=== PATIENT | male | born 1970 ===

== ENCOUNTER 2020-05-26 13:14 | Outpatient (REF) | payer BC, SELFPAY | END 2020-05-26 13:15 | disposition home or self-care (01) | LOC: HO.LAB 13:14 | PROVIDERS: Visit Provider Nurse Practitioner Family | DX: R05 Cough (principal); Z20.822 Contact with and (suspected) exposure to COVID-19 | CPT/HCPCS: 36415; U0003; U0005 ==

== ENCOUNTER 2020-05-26 13:20 | Outpatient (REF) | payer BC, SELFPAY ==
--- NOTE | ~2020-05-26 | XR_ITS ---
EXAMINATION: XR CHEST CLINICAL INFORMATION: Cough COMPARISON: Chest radiographs 04/17/2018, 06/25/2015 TECHNIQUE: 2 views of the chest were obtained. FINDINGS: The lungs are clear. There is no airspace consolidation or groundglass opacity or effusion. The heart is normal in size and the hilar and mediastinal contours and visualized bony structures are unremarkable. XR/XR chest 2V IMPRESSION: Unremarkable examination.
== END 2020-05-26 13:21 | disposition home or self-care (01) ==
LOC: HO.HMGCX 13:20
PROVIDERS: PCP Internal Medicine; Visit Provider Nurse Practitioner Family
DX: R05 Cough (principal)
CPT/HCPCS: 71046

== ENCOUNTER 2021-02-02 09:04 | Emergency (ER) | payer BC, SELFPAY ==
[2021-02-02 09:38] VITALS: BP 119/71; PULSE 80; RESP 18; TEMP 36.7; O2SAT 98; BMI 27.8
--- NOTE | 2021-02-02 10:12 | ED.BACK ---
HPI - Back Pain/Injury General Chief Complaint: Back Pain/Injury Stated Complaint: back pain Time Seen by Provider: 02/02/21 10:12 Source: patient Mode of arrival: ambulatory Limitations: no limitations History of Present Illness HPI Narrative: 50-year-old male with a history of chronic lower back pain on chronic opiates, multiple lower back surgeries back in 2012 who presents to the ER with worsening lower back pain for the last 2 months. He denies any new injury or trauma. 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 He has had flares of his back pain since. He has seen his PCP twice and treated with courses of oral steroids with minimal improvement in the pain. He continues to take his tramadol and Soma with minimal relief. He admits to trying to hold off on medications until the pain is very severe. He is having trouble sleeping because of the pain. He states the pain is mostly in his left lower back and radiates down behind his left knee. Then he has ongoing pain down the front of his lower leg to his foot. He has intermittent numbness and tingling that is chronic. He denies any urinary incontinence, fecal incontinence, fever, chills. No history of IVDA. MD elicited complaint: back pain Pertinent past history: prior back pain Onset (ago): month(s) (2) Timing: constant Severity: severe Pain scale (0-10): 8 Similar Symptoms Previously: Yes Quality: sharp, aching, tingling and spasming Location: left lower back Radiation: left upper leg and left leg below the knee Exacerbating factors: movement Relieving factors: immobilization and medication Context: unknown Associated symptoms: numbness and difficulty walking Related Data Previous Rx's Medication Instructions Recorded tramadol 50 mg tablet 50 mg PO Q6H PRN 30 Days #120 tab 12/29/20 tizanidine 4 mg tablet 4 mg PO BEDTIME 15 Days #15 tab 01/05/21 carisoprodol 350 mg tablet (Soma) 350 mg PO TID PRN #30 tab 01/26/21 lidocaine 5 % topical patch 1 patch TOPICAL DAILY #15 ea 02/02/21 naproxen 500 mg tablet 500 mg PO BID #20 tab 02/02/21 oxycodone-acetaminophen 5 mg-325 1 tab PO Q6H PRN #8 tab 02/02/21 mg tablet Allergies Allergy/AdvReac Type Severity Reaction Status Date / Time acetaminophen [From VICODIN] Allergy Unknown UPSET Verified 12/29/20 08:11 STOMACH hydrocodone [From VICODIN] Allergy Unknown UPSET Verified 12/29/20 08:11 STOMACH Review of Systems Review of Systems: Constitutional: No Fever, No Chills Cardiovascular: No Chest Pain, No SOB Gastrointestinal: No Nausea, No Vomiting,, No abdominal Pain Genitourinary: No Dysuria, No Urinary Frequency, No Hematuria, No incontinence Musculoskeletal: + joint pain, + Myalgias Skin: No Skin Lesions, No rash Neuro: No Weakness, + Numbness, No Dizziness, No Headache Psych: No Anxiety/Panic, No Depression Heme/Lymph: No Bruising, No Lymphadenopathy PMFSH Past Medical History Surgical History History of appendectomy History of lumbar fusion History of lumbar surgery Family History Family History Father CVD (cardiovascular disease) Stroke Recent heart attack Mother Myocardial infarction Hypertension Maternal Grandmother Myocardial infarction Hypertension Diabetes Family/Other FH: mental illness Social History Social History Patient Tobacco Use Status: Never used Tobacco e-Cigarette/Vaping Use: Never Used Second Hand Smoke Exposure: No Advance Directives: No service: No Current occupational status: employed Physical Exam Vital Signs: Vital Signs: Last Vital Signs Temp 98.0 F 02/02/21 09:38 Pulse 80 02/02/21 09:38 Resp 18 02/02/21 10:33 BP 119/71 02/02/21 09:38 Pulse Ox 98 02/02/21 09:38 Body Mass Index 27.8 Appearance: Alert. Oriented X3. No acute distress. HEENT: normal inspection CVS: Normal heart rate and rhythm. Pulses normal. Respiratory: No respiratory distress. Skin: Skin warm and dry. Normal skin color. Normal skin turgor. No rashes. Back: Normal inspection. Left low lumbar and SI joints are tender, palpable muscle spasm. No lumbar spinal tenderness. Limited rotation and spinal flexion due to pain. Extremities: Atraumatic, no swelling x4. Neuro: Oriented X 3. No motor deficit. No sensory deficit. Slow to get up, ambulates with a slow but steady gait. Normal DTRs. Course Course Course Narrative: 50-year-old male presenting with acute on chronic lower back pain. Pain is mostly in the left lower back, left SI joint and radiates down the left leg. He has no red flag symptoms of low back pain, no signs of cauda equina syndrome at this time. His exam and presentation are consistent with a flare of lumbar radiculopathy, however he is already on muscle relaxers and narcotic pain medicine at home. He reported no improvement with steroids prior. He is due to see his PCP 1 week from today. He had his prior back surgeries at [facility] in [place], recommended calling them for re-evaluation. He needs an outpatient MRI for further evaluation of his radiculopathy. He has been hoping to avoid surgery but understands that this may be the next option given his pain has been debilitating him for the last several months. Will plan to give a short course of Percocet and naproxen. He will stop taking his tramadol while we treat his acute pain with Percocet. He has built up a tolerance to tramadol on is not helping with his pain at this time. We discussed the importance of sticking with 1 narcotic for his pain any expressed understanding. Stable for discharge home with plan for close follow-up with his PCP and plan to follow up with [facility] for surgical evaluation. Critical Care Time Critical Care Time Critical Care Time: No Discharge Plan Discharge Clinical Impression: Lumbar radiculopathy Patient Disposition: Home, Self-Care Instructions: Lumbar Radiculopathy (ED), Lower Back Exercises (ED) Additional Instructions: Recommend following up with [facility] as soon as possible. Take prescribed Percocet as needed for severe pain, do not mix this with your previously prescribed tramadol. Recommend taking your Soma medication 3 times a day for the next few days to see if he can get on top of the muscle pain and spasm Take the prescribed naproxen 2 times a day, take with food Follow-up with your doctor as scheduled on February 09 No bending, lifting or twisting. Use ice several times per day for 20 minutes at a time for the next 48 hours and then change to heat. If your pain worsens, if you loss of function or incontinence call 911 or come back to the ER right away for evaluation. Prescriptions: New naproxen 500 mg tablet 500 mg PO BID Qty: 20 RF: 0 lidocaine 5 % adhesive patch,medicated 1 patch topical DAILY Qty: 15 RF: 0 oxycodone-acetaminophen 5-325 mg tablet 1 tab PO Q6H PRN (Reason: severe pain (scale score 7-10)) Qty: 8 RF: 0 No Action tizanidine 4 mg tablet 4 mg PO BEDTIME 15 Days Qty: 15 RF: 0 carisoprodol [Soma] 350 mg tablet 350 mg PO TID PRN (Reason: muscle pain) Qty: 30 RF: 0 tramadol 50 mg tablet 50 mg PO Q6H PRN (Reason: pain) 30 Days Qty: 120 RF: 0 Referrals: Jong Vega PA-C [Physician Weights And Measures Inspector] - 1 week (Lumbar radiculopathy, needs outpatient MRI) Stand Alone Forms: Work/School Release Interventions: ED Discharge Assessment Last Done: 02/02/21 10:30 Discharge Date/Time: 02/02/21 10:34
[2021-02-02] MEDS: Ketorolac Tromethamine 60 MG/2 ML VIAL IM (10:26)
[2021-02-02] MEDS: oxyCODONE HCl Immed Release 5 MG TABLET 10 MG PO (10:27)
[2021-02-02 10:33] VITALS: RESP 18
== END 2021-02-02 10:34 | disposition home or self-care (01) ==
PROVIDERS: Emergency Provider Emergency Medicine; PCP Internal Medicine
DX: M54.16 Radiculopathy, lumbar region (principal); Z79.891 Long term (current) use of opiate analgesic
CPT/HCPCS: 96372; 99283; 99284; J1885

== ENCOUNTER 2021-02-11 07:53 | Outpatient (REF) | payer BC, SELFPAY ==
[2021-02-11 08:40] LABS: Hematocrit 41.4 % (42.0-52.0); Mean Corpuscular HGB Conc 33.8 g/dl (31.0-36.0); Mean Corpuscular Hemoglobin 30.2 pg (27.0-33.0); Mean Corpuscular Volume 89.2 fL (80.0-98.0); Mean Platelet Volume 10.2 fL (9.4-12.4); Platelet Count 188 X10*3/uL (160-400); Red Blood Count 4.64 X10*6/uL (4.60-5.80); Red Cell Distribution Width 12.1 % (11.0-16.0); White Blood Count 6.1 X10*3/uL (4.8-10.8)
[2021-02-11 09:04] LABS: Alanine Aminotransferase 26 U/L (0-40); Albumin Level 4.5 g/dL (3.5-5.0); Alkaline Phosphatase 59 U/L (39-117); Anion Gap 10 (12-20); Aspartate Amino Transferase 21 U/L (5-37); Bilirubin Total 0.7 mg/dL (0.0-1.0); Blood Urea Nitrogen 16 mg/dL (9-16); Calcium 9.3 mg/dL (8.4-10.2); Carbon Dioxide 29 mmol/L (22-29); Chloride 103 mmol/L (96-108); Cholesterol 196 mg/dL; Estimated Glomerular Filt Rate > 60; Glucose Fasting 85 mg/dL (60-99); HDL Cholesterol 41 mg/dL; LDL Cholesterol Calculated 131 mg/dl; Potassium 4.6 mmol/L (3.3-5.1); Sodium 137 mmol/L (135-145); Total Protein 6.9 g/dL (6.5-8.0); Triglycerides 123 mg/dL
[2021-02-11 09:05] LABS: Estimated Average Glucose 91 mg/dL; Hemoglobin A1c % 4.8 %
[2021-02-11 09:26] LABS: TSH reflex Free T4 0.88 uIU/mL (0.32-4.0)
== END 2021-02-11 07:54 | disposition home or self-care (01) ==
LOC: HO.LAB 07:53
PROVIDERS: Visit Provider Physician Assistant
DX: Z13.1 Encounter for screening for diabetes mellitus (principal); Z13.220 Encounter for screening for lipoid disorders; M54.16 Radiculopathy, lumbar region
CPT/HCPCS: 36415; 80053; 80061; 83036; 84443; 85027

== ENCOUNTER 2021-03-03 17:55 | Outpatient (REF) | payer BC, SELFPAY ==
--- NOTE | ~2021-03-03 | MR_ITS ---
EXAMINATION: MR LUMBAR SPINE WITHOUT AND WITH CONTRAST CLINICAL INFORMATION: Radiculopathy, lumbar region. COMPARISON: There are no prior studies available for comparison. TECHNIQUE: MRI of the lumbar spine was obtained using routine sequences with and without contrast. Intravenous contrast: Gadavist 10 mL FINDINGS: VERTEBRAL BODIES AND PARASPINAL STRUCTURES: There is a mild levoscoliosis. 2 space cages are noted in the intervertebral disc at L5-S1. There appear to be sequelae of a left-sided hemilaminectomy at L5-S1. There is loss of signal from the intervertebral disc at L4-L5 with mild loss of intervertebral disc height. No fractures are demonstrated and marrow signal is homogenous. There is no abnormal osseous enhancement noted following intravenous contrast administration. The visualized retroperitoneal and pelvic structures are unremarkable. There are degenerative changes of the sacroiliac joints. CONUS MEDULLARIS AND CAUDA EQUINA: Normal, terminating at the level of L1-L2. The lower thoracic spinal cord has normal signal and there is no abnormal enhancement. The filum terminale and cauda equina nerve roots appear normal. SPINAL LEVELS: L1-L2: There is mild bilateral facet arthropathy. Disc contour is normal. There is no central stenosis or foraminal narrowing. L2-L3: There is mild to moderate bilateral facet arthropathy. Disc contour is normal. There is no central stenosis or foraminal narrowing. L3-L4: There is moderate bilateral facet arthropathy with ligamenta flava hypertrophy and small facet joint effusions. There is a mild diffuse disc bulge. There is no foraminal nerve root impingement and there is no central stenosis. L4-L5: There is moderate to severe bilateral facet arthropathy with ligamenta flava hypertrophy and small facet joint effusions. There is a posterior disc protrusion with an annular fissure which is most prominent centrally and toward the left. There is marked narrowing of the subarticular recesses, more severely on the left and there is impingement on the bilateral traversing L5 nerve roots. The neural foramina are patent bilaterally. There is severe central stenosis. L5-S1: There are sequelae of a left-sided hemilaminectomy. There is mild bilateral facet arthropathy. There are sequelae of a left-sided hemilaminectomy. There is a posterior osteophytic ridge which is most prominent on the left, and narrows the left subarticular recess. There is mild enhancement in this region, and there may be a degree of granulation. There is impingement on the traversing left S1 nerve root. There is no central stenosis. There is no significant foraminal narrowing. MR/MR lumbar spine wo/w con IMPRESSION: 1. There are sequelae of a left-sided hemilaminectomy at L5-S1. There is a posterior osteophytic ridge most prominent in the left which narrows the left subarticular recess with impingement on the traversing left S1 nerve root. There is some enhancement in the region of the osteophytic ridge on the left, which may be consistent with some degree of granulation. There is no central stenosis. 2. At L4-L5 there is facet arthropathy and there is a posterior disc protrusion, which is most prominent centrally and toward the left. There is marked narrowing of the subarticular recesses, more severely on the left, and there is impingement on the bilateral traversing L5 nerve roots. There is severe central stenosis. 3. Mild facet arthropathic changes are demonstrated at other levels as described above.
== END 2021-03-03 17:56 | disposition home or self-care (01) ==
LOC: HO.MRI 17:55
PROVIDERS: Visit Provider Physician Assistant
DX: M54.16 Radiculopathy, lumbar region (principal)
CPT/HCPCS: 72158; A9585

== ENCOUNTER 2021-05-25 07:54 | Emergency (ER) | payer BC, MEDICAID, SELFPAY ==
[2021-05-25 08:29] VITALS: BP 128/72; PULSE 69; RESP 18; TEMP 36.8; O2SAT 100; BMI 29.8
--- NOTE | 2021-05-25 08:39 | ED.BACK ---
HPI - Back Pain/Injury General Chief Complaint: Back Pain/Injury Stated Complaint: Back pain Time Seen by Provider: 05/25/21 08:35 Source: patient Mode of arrival: ambulatory Limitations: no limitations History of Present Illness HPI Narrative: 42-year-old male with a history of lumbar canal stenosis with lumbar radiculopathy down the left leg at baseline, multiple spine surgeries here with reports of low back pain with radiation down the left leg acute on chronic for the last 3 days unrelieved with home Percocet and Soma. Patient tells me he is scheduled to have a another surgery in 1 month at [facility] with Dr. Hernandez. Patient tells me over the last few days his pain has been worsening with no new injury or trauma. Patient has history of chronic low back pain with radiation down the left leg at baseline. Patient also reports some left lower extremity weakness secondary to pain. This is also at baseline. He denies any saddle anesthesia. No bowel or bladder incontinence. No fever. The patient is ambulatory Related Data Previous Rx's Medication Instructions Recorded lidocaine 5 % topical patch 1 patch TOPICAL DAILY #15 ea 02/02/21 carisoprodol 350 mg tablet (Soma) 350 mg PO TID PRN 5 Days #30 tab 05/05/21 tramadol 50 mg tablet 50 mg PO Q6H PRN 30 Days #120 tab 05/05/21 oxycodone-acetaminophen 5 mg-325 1 tab PO Q6H PRN 5 Days #20 tab 05/19/21 mg tablet lidocaine 5 % topical patch 1 patch TOPICAL DAILY #15 ea 05/25/21 (Lidoderm) naproxen 500 mg tablet 500 mg PO BID PRN #20 tab 05/25/21 Allergies Allergy/AdvReac Type Severity Reaction Status Date / Time acetaminophen [From VICODIN] Allergy Unknown UPSET Verified 05/25/21 08:29 STOMACH hydrocodone [From VICODIN] Allergy Unknown UPSET Verified 05/25/21 08:29 STOMACH Review of Systems Review of Systems: Yes all other systems are reviewed and are negative Constitutional: Constitutional: Reports no additional constitutional complaints, Denies body ache(s), Denies chills, Denies fever(s), Denies headache(s) and Denies weakness Eyes: Eyes: Reports no additional eye complaints and Denies change in vision ENT: Reports system reviewed and no additional complaints, except as documented, Denies dizziness, Denies headache(s), Denies nasal congestion, Denies nasal discharge and Denies neck pain Cardiovascular: Cardiovascular: Reports no additional cardiovascular complaints, Denies chest pain, Denies leg edema and Denies dyspnea Respiratory: Respiratory: Reports no additional respiratory complaints, Denies cough and Denies dyspnea Gastrointestinal: Gastrointestinal: Reports no additional gastrointestinal complaints, Denies abdominal pain, Denies diarrhea, Denies nausea and Denies vomiting Genitourinary: Genitourinary: Denies urinary incontinence Musculoskeletal: Musculoskeletal: Reports no additional musculoskeletal complaints, Reports back pain, Denies arthralgias, Denies joint swelling, Denies neck pain, Denies numbness and Reports tingling Integumentary/Breasts: Skin/Breast: Reports system reviewed and no additional complaints, except as docu and Denies rash Neurologic: Reports system reviewed and no additional complaints, except as documented, Denies Abnormal speech present, Denies dizziness, Denies headache(s), Denies numbness, Reports tingling and Denies weakness PMFSH Past Medical History Attestation statement: The following information was validated with the patient. Source: old records reviewed and nursing notes reviewed Surgical History History of appendectomy History of lumbar fusion History of lumbar surgery Family History Family History Father CVD (cardiovascular disease) Stroke Recent heart attack Mother Myocardial infarction Hypertension Maternal Grandmother Myocardial infarction Hypertension Diabetes Family/Other FH: mental illness Social History Social History Housing: Apartment Patient Tobacco Use Status: Never used Tobacco e-Cigarette/Vaping Use: Never Used Second Hand Smoke Exposure: No Advance Directives: No Advance Directives Information Provided: Yes service: No Current occupational status: unemployed and disabled Physical Exam Vital Signs: Vital Signs: Last Vital Signs Temp 98.3 F 05/25/21 08:29 Pulse 69 05/25/21 08:29 Resp 18 05/25/21 08:29 BP 128/72 05/25/21 08:29 Pulse Ox 100 05/25/21 08:29 BMI result Body Mass Index 29.8 Const: General: cooperative, healthy appearing, comfortable and no acute distress Orientation/consciousness: patient oriented x3 Limitations: no limitations HENMT: Head: Yes normal to inspection Ears: hearing grossly normal bilaterally General nose exam: Normal external nose present Face and sinus: Yes normal facial exam Mouth: Normal oral and palatal mucosa present Throat: Yes posterior oropharynx normal Eyes: General: appearance normal, both eyes and all related structures Pupils: Equal, round and reactive pupils present Neck: Neck: Yes normal visual inspection Chest: Chest palpation & inspection: normal inspection of the chest Resp: Effort & Inspection: normal respiratory effort Auscultation: clear to auscultation bilaterally Cardio: Rate: regular rate Rhythm: regular rhythm Peripheral pulses: Peripheral pulses 2+ throughout GI: Inspection: Yes normal to inspection Palpation (GI): Soft to palpation and nontender Auscultation: normal bowel sounds Back/Spine/Pelvis: Other: Lumbar midline tenderness with no step-offs or deformities. Patient unable to perform straight leg raise left side Thoracic/Lumbar Spine: thoracic and lumbar spine normal to inspection Skin: General skin exam: no rashes or lesions noted Neuro: Other: 5 in 5 strength upper extremities and right lower extremity Left lower extremity 4-5 General: patient oriented x3 and normal sensation to monofilament Cranial nerves: Yes CN's II-XII intact bilaterally, Yes Equal, round and reactive pupils present, Yes Bilaterally intact EOM present, Yes Nystagmus not present, Yes Normal facial strength present and Yes Midline tongue present Cognition (Neuro): normal cognition Speech: No Abnormal speech present Gait exam (Neuro): Normal gait present Sensory Exam: Normal double simultaneous stimulation for sensation Deep tendon reflexes (DTR's): Right patellar reflex intensity grade: 2+ and Left patellar reflex intensity grade: 2+ Extrem: General: Yes normal to inspection Course Course Course Narrative: 42-year-old male here with acute on chronic low back pain with radiation to left leg for the last few days unrelieved with home Percocet and Soma. No new injury or trauma. No new symptoms. Patient has sensation loss and weakness in the left lower extremity which he tells me is baseline. No saddle anesthesia or incontinence. Will provide analgesia and reassess 0930-patient is feeling well. His pain is improved. He is up and ambulatory. He will follow-up outpatient with his orthopedic surgeon. We discussed that he is taking Percocet already and Soma. Will add an NSAID and medicated patch. Reviewed worrisome signs and symptoms such as saddle anesthesia, incontinence and when to return to the emergency department. Comfortable discharge home. MDM - Back Pain/Injury MDM Narrative Medical decision making narrative: Less likely cauda equina with no incontinence or saddle anesthesia Differential Diagnosis Differential diagnosis: Likely lumbar radiculopathy Medical Records Attestation: I reviewed the patient's medical records. Lab Data Attestation: I reviewed the patient's lab results. Discharge Plan Discharge Clinical Impression: Lumbar radiculopathy Patient Disposition: Home, Self-Care Instructions: Lumbar Radiculopathy (ED) Additional Instructions: Continue your home medication Call your orthopedic and let them know what is going on Prescriptions: New lidocaine [Lidoderm] 5 % adhesive patch,medicated 1 patch topical DAILY Qty: 15 0RF Rx Instructions: leave on most painful area for up to 12 hrs naproxen 500 mg tablet 500 mg PO BID PRN (Reason: pain) Qty: 20 0RF No Action tramadol 50 mg tablet 50 mg PO Q6H PRN (Reason: pain) 30 Days Qty: 120 0RF carisoprodol [Soma] 350 mg tablet 350 mg PO TID PRN (Reason: muscle pain) 5 Days Qty: 30 0RF oxycodone-acetaminophen 5-325 mg tablet 1 tab PO Q6H PRN (Reason: severe pain (scale score 7-10)) 5 Days Qty: 20 0RF lidocaine 5 % adhesive patch,medicated 1 patch topical DAILY Qty: 15 0RF Rx Instructions: leave on most painful area for up to 12 hrs Referrals: Azael King MD [Physician] - 2 days Interventions: ED Discharge Assessment Last Done: 05/25/21 09:33
[2021-05-25] MEDS: oxyCODONE HCl Immed Release 5 MG TABLET 10 MG PO (08:46)
[2021-05-25] MEDS: Ketorolac Tromethamine 60 MG/2 ML VIAL IM (08:47)
[2021-05-25 09:34] VITALS: RESP 17
== END 2021-05-25 09:42 | disposition home or self-care (01) ==
PROVIDERS: Emergency Provider Emergency Medicine; PCP Physician Assistant
DX: M54.16 Radiculopathy, lumbar region (principal); R53.1 Weakness; G89.29 Other chronic pain; M54.50 Low back pain, unspecified
CPT/HCPCS: 96372; 99283; 99284; J1885

== ENCOUNTER 2021-09-21 17:00 | Outpatient (RCR) | payer MEDICARE, MEDICAID, SELFPAY ==
--- NOTE | 2021-09-07 15:10 | MHC.PT.EP ---
[facility] [place] Office [place] Office [place] Office [address] Billy Go [address] [phone] F: [phone] F: [phone] F: [phone] F: [phone] Physical Therapy Plan of Care Date of Evaluation: Date of Surgery: Diagnosis: lumbosacral intervertebral disc disorder Assessment: Patient is a 50 year old R handed male who presents with s/s consistent with low back pain secondary to surgery in June of 2021. This was his 3rd back surgery in the last decade and included hardware placement per pt report. 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 Patient past medical history includes 3 total lumbar surgeries. Current impairments include pain, posture, ROM, muscle length, strength, activity tolerance and functional mobility. Functional limitations include decreased ability to walk, sleep, lift, carry, push, pull, squat, and dress. Patient is motivated with good rehab potential. Skilled PT will address impairments and functional limitations in order to achieve goals. Frequency and Duration: The patient will be seen 2x/week for 5 weeks Short Term Goals: I with HEP - 2 weeks pain free full rotation - 3 weeks demo proper squat mechanics, floor to waist lift - 3 weeks Skilled Nursing Goals: 90/90 lacking 20 or less - 5 weeks Oswestry 6% or less - 5 weeks Safe return to all work duties - 5 weeks Treatment Plan: Modalities to reduce pain, spasms and effusion. Manual therapy to restore motion and function. Therapeutic exercise to improve strength and flexibility. Neuromuscular re-education for posture and balance. Therapeutic activities to return to functional activities of daily living. Electronically signed by: Juan Ramon Rubin, PT Please sign and return to therapist. Thank you for your referral.
--- NOTE | 2021-12-30 11:06 | MHC.PT.DC ---
[facility] [place] Office [place] Office [place] Office [address] Billy Go [address] [phone] F: [phone] F: [phone] F: [phone] F: [phone] Physical Therapy Discharge Report Diagnosis: lumbosacral intervertebral disc disorder Date of Surgery: Date of Evaluation: 09/07/21 Date of Discharge: 10/11/21 Treatments to Date: 3 Cancellations to Date: No Shows to Date: Discharge Status: Independent with HEP Patient Elected to Stop Discharge Summary: 09/21: Pt performs exercises well w/o c/o pain just appropriate fatigue. No adverse effects. 09/14: Pt progressed from exercise to exercise well, no complaints or expressions of pain; Pt demos familiarity with HEP exercises and performs well. Ed on DOMS with new exercises received well; Challenged with bug though states I like this one, I'm going to get a ball . Patient is a 50 year old R handed male who presents with s/s consistent with low back pain secondary to surgery in June of 2021. This was his 3rd back surgery in the last decade and included hardware placement per pt report. 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 Patient past medical history includes 3 total lumbar surgeries. Current impairments include pain, posture, ROM, muscle length, strength, activity tolerance and functional mobility. Functional limitations include decreased ability to walk, sleep, lift, carry, push, pull, squat, and dress. Patient is motivated with good rehab potential. Skilled PT will address impairments and functional limitations in order to achieve goals. Electronically signed by: Juan Ramon Rubin, PT Please sign and return to therapist. Thank you for your referral.
== END 2021-12-30 11:06 | disposition home or self-care (01) ==
LOC: HO.PTCHIC 17:00
PROVIDERS: PCP Physician Assistant; Visit Provider Physician Assistant
DX: M51.9 Unspecified thoracic, thoracolumbar and lumbosacral intervertebral disc disorder (principal)
CPT/HCPCS: 97110; 97112; 97161

== ENCOUNTER → 2022-02-22 13:56 | Outpatient (BNVA) | payer MEDICARE, MEDICAID, SELFPAY | PROVIDERS: PCP Physician Assistant; Visit Provider Nurse Practitioner Family | DX: Z12.11 Encounter for screening for malignant neoplasm of colon (principal) | CPT/HCPCS: 99202 ==

== ENCOUNTER 2022-04-16 07:33 | Outpatient (REF) | payer MEDICARE, MEDICAID, SELFPAY ==
[2022-04-16 08:45] LABS: Estimated Average Glucose 88 mg/dL; Hemoglobin A1c % 4.7 %
[2022-04-16 09:14] LABS: Alanine Aminotransferase 34 U/L (0-40); Albumin Level 4.6 g/dL (3.5-5.0); Alkaline Phosphatase 76 U/L (39-117); Anion Gap 13 (12-20); Aspartate Amino Transferase 51 U/L (5-37); Bilirubin Total 1.2 mg/dL (0.0-1.0); Blood Urea Nitrogen 14 mg/dL (9-16); Calcium 9.4 mg/dL (8.4-10.2); Carbon Dioxide 26 mmol/L (22-29); Chloride 105 mmol/L (96-108); Cholesterol 182 mg/dL; Estimated Glomerular Filt Rate > 60; Glucose Fasting 83 mg/dL (60-99); HDL Cholesterol 48 mg/dL; LDL Cholesterol Calculated 123 mg/dl; Potassium 4.5 mmol/L (3.3-5.1); Sodium 139 mmol/L (135-145); Total Protein 7.3 g/dL (6.5-8.0); Triglycerides 59 mg/dL
[2022-04-16 09:34] LABS: Prostate Specific Antigen Scr 0.35 ng/mL (<0.05-4.0); TSH reflex Free T4 1.54 uIU/mL (0.32-4.0)
== END 2022-04-16 07:34 | disposition home or self-care (01) ==
LOC: HO.LAB 07:33
PROVIDERS: Visit Provider Physician Assistant
DX: Z13.220 Encounter for screening for lipoid disorders (principal); Z12.5 Encounter for screening for malignant neoplasm of prostate; Z13.29 Encounter for screening for other suspected endocrine disorder
CPT/HCPCS: 36415; 80053; 80061; 83036; 84153; 84443

== ENCOUNTER 2022-05-21 09:35 | Outpatient (REF) | payer MEDICARE, MEDICAID, SELFPAY ==
[2022-05-21 11:44] LABS: Alanine Aminotransferase 16 U/L (0-40); Albumin Level 4.4 g/dL (3.5-5.0); Alkaline Phosphatase 76 U/L (39-117); Aspartate Amino Transferase 18 U/L (5-37); Bilirubin Direct 0.2 mg/dL (0.0-0.5); Bilirubin Total 0.9 mg/dL (0.0-1.0); Total Protein 6.9 g/dL (6.5-8.0)
== END 2022-05-21 09:36 | disposition home or self-care (01) ==
LOC: HO.LAB 09:35
PROVIDERS: PCP Physician Assistant; Visit Provider Nurse Practitioner Family
DX: R79.89 Other specified abnormal findings of blood chemistry (principal)
CPT/HCPCS: 36415; 80076

== ENCOUNTER 2022-08-16 10:46 | Day surgery (SDC) | payer MEDICARE, MEDICAID, SELFPAY ==
[2022-08-11 15:12] VITALS: BMI 28.3
--- NOTE | 2022-08-15 12:10 | HO.ANESPROP2 ---
Documented by User: Sarah Ayoub NP 08/18/22 14:30 HPI - Anesthesia Eval Consult details Narrative: 51yo M for Colonoscopy PMFSH Active Problems Active Problems: All Active Problems (Updated 08/11/22 @ 15:10 by Lucille Patten, DANIELLE) Cough (Acute) Sore throat (Acute) Lumbar radiculopathy (Acute) Screening for diabetes mellitus (DM) (Acute) Screening for hypercholesterolemia (Acute) Screening for hypothyroidism (Acute) Lumbar canal stenosis (Acute) Tinea pedis (Acute) Annual physical exam (Acute) Colon cancer screening (Acute) Elevated LFTs (Acute) Past Medical History Medical History Lumbar stenosis Family History Family History Father CVD (cardiovascular disease) Stroke Recent heart attack Mother Myocardial infarction Hypertension Maternal Grandmother Myocardial infarction Hypertension Diabetes Family/Other FH: mental illness Surgical History Surgical History History of appendectomy History of lumbar fusion History of lumbar surgery Social History Social History Housing: Apartment Alcohol intake: current Alcohol intake frequency: does not drink Patient Tobacco Use Status: Never used Tobacco e-Cigarette/Vaping Use: Never Used Second Hand Smoke Exposure: No service: No Current occupational status: employed 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 [employer] Cognitive needs: No Hearing needs: No Vision needs: No Meds Allergies Allergy/AdvReac Type Severity Reaction Status Date / Time hydrocodone [From VICODIN] AdvReac Intermediate UPSET Verified 08/16/22 11:49 STOMACH Home Medications Medication Instructions Recorded Confirmed Last Taken Type Excedrin Migraine 1 tab PO NEEDED PRN Headache 08/16/22 08/16/22 08/16/22 History tramadol 50 mg tablet 50 mg PO NEEDED PRN Pain 08/16/22 08/16/22 Unknown History Exam Exam Date and Time: August 15, 2022 1210 Height,Weight and Vital Signs: Height 6 ft Weight 94.801 kg Assessment and Plan Assessment Anesthesia Assessment: Chart Reviewed Documented by User: Jsoé Pierre MD 08/18/22 15:16 PMF Past Medical History Medical History Lumbar stenosis Family History Family History Father CVD (cardiovascular disease) Stroke Recent heart attack Mother Myocardial infarction Hypertension Maternal Grandmother Myocardial infarction Hypertension Diabetes Family/Other FH: mental illness Family history of problems with anesthesia: No Surgical History Surgical History History of appendectomy History of lumbar fusion History of lumbar surgery History of Problems with Anesthesia: No Social History Social History Housing: Apartment Alcohol intake: current Alcohol intake frequency: does not drink Patient Tobacco Use Status: Never used Tobacco e-Cigarette/Vaping Use: Never Used Second Hand Smoke Exposure: No service: No Current occupational status: employed 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 [employer] Cognitive needs: No Hearing needs: No Vision needs: No Meds Allergies Allergy/AdvReac Type Severity Reaction Status Date / Time hydrocodone [From VICODIN] AdvReac Intermediate UPSET Verified 08/16/22 11:49 STOMACH Home Medications Medication Instructions Recorded Confirmed Last Taken Type Excedrin Migraine 1 tab PO NEEDED PRN Headache 08/16/22 08/16/22 08/16/22 History tramadol 50 mg tablet 50 mg PO NEEDED PRN Pain 08/16/22 08/16/22 Unknown History Exam Airway Mallampati Class: II TM Dist: >3cm Neck ROM: Full Loose/Missing/Broken Teeth: Yes Assessment and Plan Assessment Anesthesia Assessment: Anesthesia Plan Discussed and Chart Reviewed Final Anesthetic Review Family History of Problems with Anesthesia: No History of Problems with Anesthesia: No NPO: Yes ASA Class: II Final Preanesthetic Review: No Changes in Pt Med Stat, Meds/Allgs Chart Reviewed, Consent Obtained/Reviewed and Anes Risks/Benef Reviewed Patient Risk: Low Procedure Risk: Low Anesthetic Plan Anesthetic Plan: MAC: Disposition: Standard PACU
[2022-08-16 11:55] VITALS: BMI 27.8
[2022-08-16 11:58] VITALS: BP 131/71; PULSE 54; RESP 16; TEMP 36.3; O2SAT 100
[2022-08-16] MEDS: Lactated Ringers 1,000 ML 100 ML IVCONT (13:04)
--- NOTE | 2022-08-16 13:05 | P.OP_ITS ---
Operative Note Operative Note Date of Service: 08/16/22 Narrative: Operative Information Procedure Description: Colonoscopy Indication: screening Anesthesia: MAC COLONOSCOPY Instrument: Olympus variable stiffness pediatric scope 190L Colonoscopy Monitoring: Vital signs and clinical assessment, continuous EKG monitoring, Pulse oximetry, Carbon Dioxide monitoring and blood pressure monitoring were done throughout the procedure. Colon withdrawal time was 10 minutes. Procedure: The patient was placed in the left lateral decubitis position and pre-procedure medications were administered. After a digital rectal examination of the ano-rectum, the video colonoscope was inserted into the rectum and advanced through the colon to the cecum/TI. The colonoscope was slowly withdrawn in a retrograde panoramic fashion and the colon mucosa was carefully examined including a retroflexed view of the rectum. Findings and interventions are described below. Procedure Difficulty: easy Findings: Terminal Ileum-normal Cecum:normal Ascending Colon: normal Transverse Colon -normal Descending Colon:normal Sigmoid Colon: 10 mm sessile polyp removed with cold snare Rectum: Retroflexion with small internal hemorrhoids, grade I Anorectum - normal Colon preparation: [place] Bowel Preparation Scale Right colon; 3 Transverse colon: 3 Left colon; 3 (0 = Unprepared colon segment with mucosa not seen due to solid stool that cannot be cleared. 1 = Portion of mucosa of the colon segment seen, but other areas of the colon segment not well seen due to staining, residual stool and/or opaque liquid. 2 = Minor amount of residual staining, small fragments of stool and/or opaque l iquid, but mucosa of colon segment seen well. 3 = Entire mucosa of colon segment seen well with no residual staining, small fragments of stool or opaque liquid) Impression and Post Procedure Diagnosis: polyp internal hemorrhoids Plan: High fiber diet leaflet Avoid straining at stool, epsom salts and sitz bath, anusol supps or cream Repeat Colonoscopy in 5-7 years due to adenomatous appearing polyp or earlier if clinically indicated Above findings were reviewed with the patient and relevant handouts were provided if indicated.
--- NOTE | 2022-08-16 13:05 | MHC.SHP ---
Pre-Procedural Eval Section A Date of Service: 08/16/22 Section B Chief Complaint: Encounter for screening for malignant neoplasm Relevant Family History (Specify if Yes): No Relevant Social History: None Present Medications: see Short Stay Collaborative assessment Medical History: Significant History (Lumbar stenosis) History of Previous Operations: Relevant previous surgery/procedure and date(s) (History of appendectomy History of lumbar fusion History of lumbar surgery) Allergies: Allergies Allergy/AdvReac Type Severity Reaction Status Date / Time hydrocodone [From VICODIN] AdvReac Intermediate UPSET Verified 08/16/22 11:49 STOMACH Review of Systems Sugical H&P ROS: Negative: Constitution, Cardiovascular, Respiratory, Neurological, Psychiatric, Hem-Onc, Allergic/Immunologic, Gastrointestinal, Genitourinary, Musculoskeletal, Integumentary, Endocrine and Eyes/Ears/Nose/Throat Exam Surgical H&P Exam: Normal: HEENT, Normal: Heart, Normal: Lungs, Normal: Extremities, Normal: Abdomen, Normal: Skin and Normal: Neurological Plan Diagnosis/Plan: Unchanged I have reviewed the history and physical and performed a pertinent physical examination on my patient. No changes have occurred unless specified. Time Spent With Patient Time: Total time managing care of this patient today ____ minutes.
--- NOTE | 2022-08-16 13:10 | PC.NURSE ---
PARTIAL INTO PROCEDURE ROOM PER DR. FORRESTER. POWER CLERICAL ADVISER MADE AWARE.
[2022-08-16 13:38] VITALS: BP 95/53; PULSE 49; RESP 12; TEMP 36.4; O2SAT 99
[2022-08-16 13:53] VITALS: BP 98/58; PULSE 47; RESP 14; O2SAT 100
[2022-08-16 14:08] VITALS: BP 118/78; PULSE 59; RESP 14; TEMP 36.4; O2SAT 100
== END 2022-08-16 14:55 | disposition home or self-care (01) ==
PROVIDERS: PCP Physician Assistant; Visit Provider Internal Medicine Gastroenterology
PROC: 0DJD8ZZ Inspection of Lower Intestinal Tract, Via Natural or Artificial Opening Endoscopic (ICD-10-PCS; CPT 45378; principal; 2022-08-16 13:10)
DX: Z12.11 Encounter for screening for malignant neoplasm of colon (principal); D12.5 Benign neoplasm of sigmoid colon; K64.0 First degree hemorrhoids; M48.061 Spinal stenosis, lumbar region without neurogenic claudication; Z88.8 Allergy status to other drugs, medicaments and biological substances; Z98.1 Arthrodesis status; Z79.899 Other long term (current) drug therapy
CPT/HCPCS: 45385; 88305

== ENCOUNTER → 2022-08-29 15:02 | Outpatient (BNVA) | payer MEDICARE, MEDICAID, SELFPAY | PROVIDERS: PCP Physician Assistant; Visit Provider Nurse Practitioner Family | DX: D12.6 Benign neoplasm of colon, unspecified (principal); Z98.890 Other specified postprocedural states | CPT/HCPCS: 99212 ==

== ENCOUNTER 2023-01-19 14:58 | Outpatient (AMB) | payer OTHER, SELFPAY ==
--- NOTE | 2023-01-19 15:03 | MHC.PC.OV ---
Vital Signs 01/19/23 15:04 Height 6 ft Weight 213 lb BMI 28.9 BP 122/74 Blood Pressure Location Lt brachial Position Sitting Pulse 80 Pulse Source Pulse Oximeter Pulse Oximetry (%) 98 Oxygen Delivery Method Room Air Intake Visit Reasons: annual exam Intake Note: Patient is here today for a physical. 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 Accompanied by: Self / Same As Patient Allergies hydrocodone [From VICODIN] Adverse Reaction (Intermediate, Verified 01/19/23 15:15) UPSET STOMACH Medication List - Last Reconciled 01/19/23 by Jong Vega PA-C clotrimazole 1% (Athlete's Foot (clotrimazole)) 1 appl topical BID 30 days [Excedrin Migraine 1 tab PO NEEDED PRN] tramadol 50 mg PO NEEDED 15 days Tobacco use date assessed: 01/19/23 Dental Screening Dental Screen Date: 01/19/23 Did you have a dental visit in the last 12 months?: Yes Did you have a dental problem in the last 6 months where you did not have access to dental care?: No Was dental information given to patient?: Patient has dentist HPI annual exam HPI Details PATIENT IS A 52-YEAR-OLD MALE HERE TODAY FOR And annual physical. Patient has a past medical history significant for lumbar stenosis. Patient reports he has been somewhat more depressed as of late. He reports of in months ago is son was murdered which has caused depression. Has not been going to the gym and feels his back pain is a bit worse due to not going to the gym. Patient has a history lumbar disc disease-->? Note does have history lumbar surgeries in 2014 and 2015. Recently had lumbar disc ectomy at [facility] with Dr. King 06/2021. ? HE FEELS HIS PAIN IS MUCH BETTER.? He is now back to work and his strength has come back in his lower extremities. He still does use tramadol on a p.r.n. basis Vaccine: UTD with Tdap and COVID vaccine, Declines flu vaccine .. Colonrectal cancer Screening: Colonoscopy done- in 2022 All tubular adenoma polyp found repeat colonoscopy in 5 years PFSH Medical History Tubular adenoma Lumbar stenosis Surgical History Hx of colonoscopy History of lumbar fusion History of appendectomy History of lumbar surgery Family History Father CVD (cardiovascular disease) Stroke Recent heart attack Mother Myocardial infarction Hypertension Maternal Grandmother Myocardial infarction Hypertension Diabetes Family/Other FH: mental illness Social History (Updated 01/19/23 @ 15:24 by Jong Vega PA-C) Housing: Apartment Alcohol intake: current Alcohol intake frequency: does not drink Patient Tobacco Use Status: Never used Tobacco e-Cigarette/Vaping Use: Never Used Second Hand Smoke Exposure: No service: No Current occupational status: employed 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 1. Little interest or pleasure in doing things: nearly every day (Pt loss his son 7 months ago on 06/17/22.) 2. Feeling down, depressed, or hopeless: nearly every day 3. Trouble falling or staying asleep, or sleeping too much: more than half the days 4. Feeling tired or having little energy: more than half the days 5. Poor appetite or overeating: more than half the days 6. Feeling bad about yourself - or that you are a failure or have let yourself or your family down: several days 7. Trouble concentrating on things, such as reading the newspaper or watching television: not at all 8. Moving or speaking so slowly that other people could have noticed. Or the opposite - being so fidgety or restless that you have been moving around a lot more than usual: not at all 9. Thoughts that you would be better off or of hurting yourself in some way: not at all Total score: 13 Depression Screening Interpretation: Positive Depression Screening Follow-up: Existing condition Depression Screening Done: Yes 76813 - PHQ-9 Billing: Yes Source: Developed by Drs. Azael Marsh, Marielos Reese, Tone Mohamud and colleagues, with an educational tessy from [employer]. Thrive Questionnaire Date Thrive assessed: 01/19/23 I am a: Patient What is your living situation today?: I have a steady place to live Within the past 12 months, did the food you bought not last and you didn't have the money to get more?: Never true Within the past 12 months, did you worry whether your food would run out before you got money to buy more?: Never true Do you have trouble paying for medicines?: No Do you have trouble getting transportation to medical appointments?: No Do you have trouble paying your heating and electricity bill?: No Do you have trouble taking care of your child, family member or friend?: No Do you have trouble with day-to-day activities such as bathing, preparing meals, shopping, managing finances, etc.?: No Are you currently unemployed and looking for a job?: No Are you interested in more education?: No Please select the resources that you would like help with: None Currently or been in a relationship where the following occur: no concerns reported AUDIT C Alcohol Use Questionnaire (AUDIT-C) 1. How often do you have a drink containing alcohol?: Never 3. How often do you have six or more drinks on one occasion?: Never Total Score: 0 CADE-7 AMB Questionnaire CADE-7 Date CADE - 7 assessed: 01/19/23 Feeling nervous, anxious, or on edge: 3 = Nearly every day Not being able to stop or control worryin = Nearly every day Worrying too much about different things: 3 = Nearly every day Trouble relaxin = Nearly every day Being so restless that it is hard to sit still: 0 = Not at all Becoming easily annoyed or irritable: 3 = Nearly every day Feeling afraid as if something awful might happen: 3 = Nearly every day Total CADE-7 score (0-4 normal; 5-9 mild; 10-14 moderate; 15-21 severe): 18 Source: Developed by Drs. Azael Marsh, Marielos Reese, Tone Mohamud and colleagues, with an educational tessy from [employer]. CADE-7 Assessment Billing CADE-7 Assessment Tool: CADE-7 Assessment 73079 Review of Systems Const Denies body aches, Denies chills, Denies excessive sweating, Denies fatigue, Denies fever(s) and Denies headache(s) Eyes Denies blurry vision ENT Denies dysphagia, Denies vertigo, Denies dizziness, Denies headache(s), Denies hearing loss and Denies tinnitus Card Denies chest pain, Denies chest pain with activity, Denies syncope, Denies irregular heart rhythm and Denies dyspnea Resp Denies chest congestion, Denies cough, Denies hemoptysis, Denies dyspnea and Denies wheezing GI Denies abdominal pain, Denies melena, Denies hematochezia, Denies coffee ground emesis, Denies dysphagia, Denies diarrhea, Denies nausea and Denies vomiting Denies difficulty urinating, Denies dysuria, Denies urinary frequency, Denies urinary hesitancy and Denies urinary urgency Musc Denies arthralgias, Denies limited range of motion, Denies muscle cramps and Denies muscle weakness Skin/Breast Denies rash and Denies skin ulcer Neuro Denies Abnormal speech present, Denies confusion, Denies vertigo, Denies dizziness, Denies syncope, Denies headache(s), Denies memory loss and Denies seizure-like activity Psych Denies anxiety, Denies confusion, Denies depression, Denies memory loss, Denies panic attacks and Denies paranoia Endo Denies excessive sweating, Denies fatigue, Denies flushing, Denies polydipsia and Denies polyuria Aller/Immun Denies wheezing Physical exam (Primary Care) Vital Signs: Last Vital Signs Pulse 80 01/19/23 15:04 BP 122/74 01/19/23 15:04 Pulse Ox 98 01/19/23 15:04 Oxygen Delivery Method Room Air 01/19/23 15:04 BMI result Body Mass Index 28.9 Tobacco/Smoking Status: Tobacco use Status Tobacco use date assessed 01/19/23 01/19/23 15:13 Patient Tobacco Use Status Never used Tobacco 01/19/23 15:24 e-Cigarette/Vaping Use Never Used 01/19/23 15:24 PHQ-9: PHQ-9 Score PHQ-9: Total score 13 01/19/23 15:23 Depression Screening Interpretation: Positive Depression Screening Follow-up: Existing condition Thrive Assessment: Date of Thrive Assessment Date Thrive assessed 01/19/23 01/19/23 15:13 Currently or been in a relationship where the following occur: no concerns reported Const General: cooperative, comfortable, no acute distress, alert and awake; No confusion Orientation/consciousness: oriented to person, oriented to place, patient oriented x3 and No confusion HENMT Head: Yes normocephalic Ears: external ears normal and TM's normal bilaterally Face and sinus: No sinus tenderness Mouth: Normal oral and palatal mucosa present and tongue normal Teeth and gingiva: dentition normal and gingiva normal Throat: Yes posterior oropharynx normal, Yes tonsils normal and Yes uvula midline Eyes Conjunctivae: conjunctivae normal Sclerae: sclerae normal Pupils: Equal, round and reactive pupils present EOM: EOMs intact bilaterally Direct Ophthalmoscopy: No no photophobia Neck Neck: Yes no lymphadenopathy, No tender and Yes no JVD Thyroid: Thyroid normal Carotids: no bruits Chest Chest palpation & inspection: no tenderness Resp Effort & Inspection: normal respiratory effort, no audible wheezes, not labored and no stridor Auscultation: no crackles, no rales, no rhonchi and no wheezes Cardio Jugular venous distension: no JVD Rate: regular rate, not bradycardic and not tachycardic Rhythm: regular rhythm Bruits: no carotid bruits Peripheral pulses: Peripheral pulses 2+ throughout GI Inspection: Yes normal to inspection, No abdominal wall ecchymosis and No visible herniation Palpation (GI): Soft to palpation, nontender, no guarding, not rigid and No hepatosplenomegaly present Auscultation: normoactive bowel sounds General: Yes no CVA tenderness Back/Spine/Pelvis Back: no CVA tenderness and No back tenderness Cervical Spine: cervical ROM normal Thoracic/Lumbar Spine: thoracic and lumbar spine normal to inspection, straight leg raise negative bilaterally, No thoraco-lumbar ROM limited and No lumbar spinal tenderness Skin Lesions: no lesions Rashes: no rashes Wounds: no wounds Neuro General: oriented to person, oriented to place, patient oriented x3, CN's II-XI intact bilaterally and No confusion Cranial nerves: Yes Equal, round and reactive pupils present and Yes Normal accommodation reflex present Cognition (Neuro): normal cognition Speech: No Abnormal speech present Gait exam (Neuro): Normal gait present Motor exam (neuro): 5/5 motor strength present throughout Extrem Right upper extremity: full ROM; no cyanosis Left upper extremity: full ROM; no cyanosis Right lower extremity: no edema Left lower extremity: no edema Psych Appearance: grossly normal Mental Status: mental status grossly normal Affect: normal affect Attitude: cooperative Thought process: Normal thought process present Assessment and Plan Assessment & Plan (1) Annual physical exam: Code(s): Z00.00 - Encounter for general adult medical examination without abnormal findings (2) Lumbar canal stenosis: Code(s): M48.061 - Spinal stenosis, lumbar region without neurogenic claudication Qualifiers: Neurogenic claudication status: with neurogenic claudication Qualified Code(s): M48.062 - Spinal stenosis, lumbar region with neurogenic claudication Plan: Patient is status post lumbar spine surgery. Doing much better and is back to work. 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 He does use tramadol on today before work which allows him to be more physically active and work at the pace he needs to. (3) MDD (major depressive disorder), recurrent episode, moderate: Code(s): F33.1 - Major depressive disorder, recurrent, moderate Plan: Patient's PHQ-9 score positive for moderate depression which is likely due to the recent passing of his son. He is not interested in medication for his depression. He feels he has a good support system in his hinduism in in his family. (4) CADE (generalized anxiety disorder): Code(s): F41.1 - Generalized anxiety disorder Plan: Patient's CADE-7 score positive for moderate anxiety likely secondary to the passing of his son. (5) Erectile dysfunction: Code(s): N52.9 - Male erectile dysfunction, unspecified Qualifiers: Erectile dysfunction type: post-procedural Post-procedural erectile dysfunction type: unspecified Qualified Code(s): N52.39 - Other and unspecified postprocedural erectile dysfunction Plan: Reports he has been having some trouble with lasting erection. He would like to try something a fill here in basis. Orders: Orders Comprehensive [place]. Panel Fast 01/19/23 Z13.1 - Encounter for screening for diabetes mellitus Prostate Specific Antigen Scr 01/19/23 Z12.5 - Encounter for screening for malignant neoplasm of prostate, Z13.1 - Encounter for screening for diabetes mellitus Medications: New sildenafil 100 mg PO DAILY 5 days PRN 5 tabs 0RF sexual activity N52.39 - Other and unspecified postprocedural erectile dysfunction Refilled clotrimazole 1% (Athlete's Foot (clotrimazole)) 1 appl topical BID 30 days 45 grams 1RF B35.3 - Tinea pedis Coding Level of Care Code Est Pt Prev Care 40-64y(57533) Diagnoses Annual physical exam Z00.00 Spinal stenosis of lumbar region with neurogenic claudication M48.062 Neurogenic claudication status: with neurogenic claudication MDD (major depressive disorder), recurrent episode, moderate F33.1 CADE (generalized anxiety disorder) F41.1 Post-procedural erectile dysfunction, unspecified type N52.39 Erectile dysfunction type: post-procedural Post-procedural erectile dysfunction type: unspecified Additional Codes CADE-7 Assessment Billing - CADE-7 Assessment Tool: CADE-7 Assessment [id number] ([id number])
[2023-01-19 15:04] VITALS: BP 122/74; PULSE 80; O2SAT 98; BMI 28.9
== END 2023-01-19 15:46 | disposition home or self-care (01) ==
PROVIDERS: PCP Physician Assistant; Visit Provider Physician Assistant
DX: Z00.00 Encounter for general adult medical examination without abnormal findings (principal); M48.062 Spinal stenosis, lumbar region with neurogenic claudication; F33.1 Major depressive disorder, recurrent, moderate; F41.1 Generalized anxiety disorder; N52.39 Other and unspecified postprocedural erectile dysfunction
CPT/HCPCS: 96127; 99396

== ENCOUNTER 2023-03-24 22:32 | Emergency (ER) | payer BC, SELFPAY ==
[2023-03-24 22:35] VITALS: BP 134/73; PULSE 68; RESP 18; TEMP 36.8; O2SAT 100; BMI 28.5
--- NOTE | 2023-03-24 23:14 | PC.NURSE ---
this rn assumed care of pt from previous shift rn at 2300. pt calm and cooperative. pt able to form complete sentences and maintain airway and secretions appropriately. pt awaiting to be seen by ed provider
--- NOTE | 2023-03-24 23:21 | ED.WOUNDLAC ---
HPI - Wound/Laceration General Chief Complaint: General Medical Stated Complaint: bit tongue Time Seen by Provider: 03/24/23 23:04 Source: patient Mode of arrival: ambulatory Limitations: no limitations History of Present Illness HPI narrative: Patient eating steak and accidentally bit his dorsum of the tongue came here with small laceration without significant bleeding Related Data Home Medications Medication Instructions Recorded Confirmed Excedrin Migraine 1 tab PO NEEDED PRN Headache 08/16/22 01/19/23 Previous Rx's Medication Instructions Recorded clotrimazole 1 % topical cream 1 appl topical BID 30 days #45 01/19/23 (Athlete's Foot (clotrimazole)) grams sildenafil 100 mg tablet 100 mg PO DAILY PRN sexual 01/19/23 activity 5 days #5 tabs tramadol 50 mg tablet 50 mg PO NEEDED Pain 15 days 03/13/23 #15 tabs Allergies Allergy/AdvReac Type Severity Reaction Status Date / Time hydrocodone [From VICODIN] AdvReac Intermediate UPSET Verified 03/24/23 22:41 STOMACH Review of Systems Review of Systems: Yes all other systems are reviewed and are negative [facility] Past Medical History Medical History Tubular adenoma Lumbar stenosis Surgical History Hx of colonoscopy History of lumbar fusion History of appendectomy History of lumbar surgery Family History Family History Father CVD (cardiovascular disease) Stroke Recent heart attack Mother Myocardial infarction Hypertension Maternal Grandmother Myocardial infarction Hypertension Diabetes Family/Other FH: mental illness Social History Social History Housing: Apartment Alcohol intake: current Alcohol intake frequency: does not drink Patient Tobacco Use Status: Never used Tobacco Smoked in Last 30 Days: No e-Cigarette/Vaping Use: Never Used Second Hand Smoke Exposure: No Use of substances other than those prescribed or required for medical reasons: No Advance Directives: No Advance Directives Information Provided: No service: No Current occupational status: employed 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 About 1 cm superficial laceration not active bleeding Medical Decision Making Medical Decision Making [facility] Narrative: Patient has superficial laceration on the dorsum of the tongue about 1 cm length no active bleeding does not need any suturing Discharge Plan Discharge Clinical Impression: Simple laceration of tongue Patient Disposition: Home, Self-Care Instructions: Laceration Without Closure (ED) Additional Instructions: You have a very superficial laceration of her tongue which does not need any suturing Avoid any hot and spicy or citrus foods Drink cold fluids/ice chips/popsicle to stop bleeding if any Anticipated laceration should heal in next 2-3 days Prescriptions: No Action tramadol 50 mg tablet 50 mg PO NEEDED 15 Days Qty: 15 3RF Excedrin Migraine 1 tab PO NEEDED PRN (Reason: Headache) clotrimazole [Athlete's Foot (clotrimazole)] 1 % cream 1 appl topical BID 30 Days Qty: 45 1RF sildenafil 100 mg tablet 100 mg PO DAILY PRN (Reason: sexual activity) 5 Days Qty: 5 0RF Interventions: ED Discharge Assessment Last Done: 03/24/23 23:30 Discharge Date/Time: 03/24/23 23:31
== END 2023-03-24 23:31 | disposition home or self-care (01) ==
PROVIDERS: Emergency Provider Internal Medicine; PCP Physician Assistant
DX: S01.512A Laceration without foreign body of oral cavity, initial encounter (principal); X58.XXXA Exposure to other specified factors, initial encounter; Y93.9 Activity, unspecified; Y92.9 Unspecified place or not applicable; Y99.9 Unspecified external cause status; Z79.899 Other long term (current) drug therapy
CPT/HCPCS: 99282; 99284

== ENCOUNTER 2023-07-20 11:12 | Outpatient (AMB) | payer BC, SELFPAY ==
--- NOTE | 2023-07-20 11:24 | A.OFFPC_ITS ---
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 Required: No Accompanied by: Self / Same As Patient Allergies hydrocodone [From VICODIN] Adverse Reaction (Intermediate, Verified 07/20/23 11:36) UPSET STOMACH Medication List - Last Reconciled 07/20/23 by Jong Vega PA-C clotrimazole 1% (Athlete's Foot (clotrimazole)) 1 appl topical BID 30 days [Excedrin Migraine 1 tab PO NEEDED PRN] sildenafil 100 mg PO DAILY PRN 5 days tramadol 50 mg PO NEEDED 15 days Tobacco use date assessed: 07/20/23 Dental Screening Dental Screen Date: 07/20/23 Did you have a dental visit in the last 12 months?: Yes Did you have a dental problem in the last 6 months where you did not have access to dental care?: No Was dental information given to patient?: Patient has dentist HPI 6 Month F/U HPI Details Patient is a 52-year-old male here today for follow-up visit. Patient has a past medical history significant for lumbar stenosis. Concern-- > reports having nasal congestion and rhinorrhea on a daily basis worse at night. Has tried decongestant nasal spray and breathe right strips which have offered him some relief though symptoms continue. Patient has a history lumbar disc disease-->? Note does have history lumbar surg eries in 2014 and 2015. Recently had lumbar disc ectomy at [facility] with Dr. King 06/2021. ? HE FEELS HIS PAIN IS MUCH BETTER.? He is now back to work full-time and strength in his lower extremities does not impaired. He still does use tramadol on a p.r.n. basis [facility] Medical History Tubular adenoma Lumbar stenosis Surgical History Hx of colonoscopy History of lumbar fusion History of appendectomy History of lumbar surgery Family History Father CVD (cardiovascular disease) Stroke Recent heart attack Mother Myocardial infarction Hypertension Maternal Grandmother Myocardial infarction Hypertension Diabetes Family/Other FH: mental illness Social History Housing: Apartment Alcohol intake: current Alcohol intake frequency: does not drink Patient Tobacco Use Status: Never used Tobacco e-Cigarette/Vaping Use: Never Used Second Hand Smoke Exposure: No service: No Current occupational status: employed 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 1. Little interest or pleasure in doing things: not at all 2. Feeling down, depressed, or hopeless: not at all 3. Trouble falling or staying asleep, or sleeping too much: not at all 4. Feeling tired or having little energy: not at all 5. Poor appetite or overeating: not at all 6. Feeling bad about yourself - or that you are a failure or have let yourself o r your family down: not at all 7. Trouble concentrating on things, such as reading the newspaper or watching television: not at all 8. Moving or speaking so slowly that other people could have noticed. Or the opposite - being so fidgety or restless that you have been moving around a lot more than usual: not at all 9. Thoughts that you would be better off or of hurting yourself in some way: not at all Total score: 0 Depression Screening Interpretation: Negative Depression Screening Done: Yes 40644 - PHQ-9 Billing: Yes Source: Developed by Drs. Azael Marsh, Marielos Reese, Tone dupont nd colleagues, with an educational tessy from [employer]. Thrive Questionnaire Date Thrive assessed: 07/20/23 I am a: Patient What is your living situation today?: I have a steady place to live Within the past 12 months, did the food you bought not last and you didn't have the money to get more?: Never true Within the past 12 months, did you worry whether your food would run out before you got money to buy more?: Never true Do you have trouble paying for medicines?: No Do you have trouble getting transportation to medical appointments?: No Do you have trouble paying your heating and electricity bill?: No Do you have trouble taking care of your child, family member or friend?: No Do you have trouble with day-to-day activities such as bathing, preparing meals, shopping, managing finances, etc.?: No Are you currently unemployed and looking for a job?: No Are you interested in more education?: No Please select the resources that you would like help with: None Currently or been in a relationship where the following occur: no concerns reported THRIVE Score: 0 AUDIT C Alcohol Use Questionnaire (AUDIT-C) 1. How often do you have a drink containing alcohol?: Never 3. How often do you have six or more drinks on one occasion?: Never Total Score: 0 CADE-7 AMB Questionnaire CADE-7 Date CADE - 7 assessed: 07/20/23 Feeling nervous, anxious, or on edge: 0 = Not at all Not being able to stop or control worryin = Not at all Worrying too much about different things: 0 = Not at all Trouble relaxin = Not at all Being so restless that it is hard to sit still: 0 = Not at all Becoming easily annoyed or irritable: 0 = Not at all Feeling afraid as if something awful might happen: 0 = Not at all Total CADE-7 score (0-4 normal; 5-9 mild; 10-14 moderate; 15-21 severe): 0 Source: Developed by Drs. Azael Marsh, Marielos Reese, Tone Mohamud and colleagues, with an educational tessy from [employer]. CADE-7 Assessment Billing CADE-7 Assessment Tool: CADE-7 Assessment 15893 Review of Systems Const Denies headache(s) Eyes Denies loss of vision ENT Denies vertigo, Denies dizziness, Denies headache(s), Reports nasal congestion, Reports nasal discharge, Reports post nasal drip, Reports sinus pressure and Denies sore throat Card Denies chest pain, Denies leg edema and Denies lightheadedness Resp Denies cough, Denies hemoptysis and Denies wheezing GI Denies abdominal pain, Denies melena, Denies constipation, Denies diarrhea and Denies vomiting Denies dysuria, Denies urinary frequency and Denies urinary urgency Musc Denies arthralgias, Denies joint swelling, Denies numbness and Denies tingling Neuro Denies Abnormal speech present, Denies behavioral changes, Denies vertigo, Denies dizziness, Denies headache(s), Denies loss of vision, Denies memory loss, Denies numbness and Denies tingling Psych Denies anxiety, Denies behavioral changes, Denies depression, Denies memory loss and Denies panic attacks Aidan/Lymph Denies easy bleeding and Denies easy bruising Aller/Immun Denies wheezing Physical exam (Primary Care) Vital Signs: Last Vital Signs Pulse 72 07/20/23 11:25 BP 120/58 L 07/20/23 11:25 Pulse Ox 98 07/20/23 11:25 Oxygen Delivery Method Room Air 07/20/23 11:25 BMI result Body Mass Index 29.2 Tobacco/Smoking Status: Tobacco use Status Tobacco use date assessed 07/20/23 07/20/23 11:31 Patient Tobacco Use Status Never used Tobacco 07/20/23 11:24 e-Cigarette/Vaping Use Never Used 07/20/23 11:24 PHQ-9: PHQ-9 Score PHQ-9: Total score 0 07/20/23 11:39 Depression Screening Interpretation: Negative Thrive Assessment: Date of Thrive Assessment Date Thrive assessed 07/20/23 07/20/23 11:27 Currently or been in a relationship where the following occur: no concerns reported Const General: healthy appearing, no acute distress, alert and awake Nutritional Appearance: well nourished Orientation/consciousness: oriented to person, oriented to place and oriented to time HENMT Ears: TM's normal bilaterally General nose exam: Normal nasal mucous membranes and turbinates present Eyes Conjunctivae: conjunctivae normal Sclerae: sclerae normal Pupils: Equal, round and reactive pupils present Neck Neck: Yes no lymphadenopathy and Yes no JVD Thyroid: Thyroid normal Carotids: no bruits Resp Effort & Inspection: normal respiratory effort and not tachypneic Auscultation: no crackles, no rales, no rhonchi and no wheezes Cardio Rate: regular rate Rhythm: regular rhythm Heart sounds: no murmurs and normal S1 and S2 GI Palpation (GI): Soft to palpation, nontender, no hepatomegaly and no splenomegaly Auscultation: normal bowel sounds Skin General skin exam: no rashes or lesions noted and dry skin Neuro General: oriented to person, oriented to place and oriented to time Cranial nerves: Yes Equal, round and reactive pupils present Speech: No Abnormal speech present Gait exam (Neuro): Normal gait present Motor exam (neuro): no tremor noted Extrem Right upper extremity: full ROM Left upper extremity: full ROM Right lower extremity: full ROM; no edema Left lower extremity: full ROM; no edema Psych Mental Status: mental status grossly normal Speech and movement: Normal speech and movement present Affect: normal affect Attitude: cooperative Thought process: Normal thought process present Assessment and Plan Assessment & Plan (1) Lumbar canal stenosis: Code(s): M48.061 - Spinal stenosis, lumbar region without neurogenic claudication Qualifiers: Neurogenic claudication status: with neurogenic claudication Qualified Code(s): M48.062 - Spinal stenosis, lumbar region with neurogenic claudication Plan: Patient is status post lumbar spine surgery. 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 He does use tramadol on today before work which allows him to be more physically active and work at the pace he needs to. (2) Allergic rhinitis: Code(s): J30.9 - Allergic rhinitis, unspecified Qualifiers: Allergic rhinitis seasonality: non-seasonal Allergic rhinitis trigger: other Qualified Code(s): J30.89 - Other allergic rhinitis Plan: Reports over last several months suffering with rhinitis worse at night. Has tried decongestant nasal spray though only provides him minimal relief. Will supply patient with antihistamine to take on a daily basis and Flonase nasal spray. Will test for environmental allergies. (3) MDD (major depressive disorder), recurrent episode, moderate: Code(s): F33.1 - Major depressive disorder, recurrent, moderate Plan: Currently in remission, doing better with his mental health. Not interested in any medication or mental health therapy at this time. Orders: Orders Resp Allergy Profile Region I Today J. - Other allergic rhinitis, R05.9 - Cough, unspecified Medications: New montelukast (Singulair) 10 mg PO BEDTIME 30 tabs 1RF 30 days - Other allergic rhinitis fluticasone propionate 50 mcg/actuation (Flonase Allergy Relief) administer into each nostril 1 spray intranasal BID 16 grams 3RF 30 days - Other allergic rhinitis Refilled tramadol 50 mg PO NEEDED 15 tabs 3RF Pain 15 days M54.16 - Radiculopathy, lumbar region Coding Level of Care Code Est Pt Level 4 (30027) Diagnoses Spinal stenosis of lumbar region with neurogenic claudication M48.062 Neurogenic claudication status: with neurogenic claudication Non-seasonal allergic rhinitis due to other allergic trigger J30.89 Allergic rhinitis seasonality: non-seasonal Allergic rhinitis trigger: other MDD (major depressive disorder), recurrent episode, moderate F33.1 Additional Codes CADE-7 Assessment Billing - CADE-7 Assessment Tool: CADE-7 Assessment [id number] ([id number])
[2023-07-20 11:25] VITALS: BP 120/58; PULSE 72; O2SAT 98; BMI 29.2
== END 2023-07-20 11:59 | disposition home or self-care (01) ==
PROVIDERS: PCP Physician Assistant; Visit Provider Physician Assistant
DX: M48.062 Spinal stenosis, lumbar region with neurogenic claudication (principal); J30.89 Other allergic rhinitis; F33.1 Major depressive disorder, recurrent, moderate
CPT/HCPCS: 99214

== ENCOUNTER 2023-12-16 10:32 | Outpatient (REF) | payer BC, SELFPAY ==
[2023-12-16 11:57] LABS: Alanine Aminotransferase 30 U/L (0-40); Albumin Level 4.3 g/dL (3.5-5.0); Alkaline Phosphatase 68 U/L (39-117); Anion Gap 10 (12-20); Aspartate Amino Transferase 34 U/L (5-37); Bilirubin Total 0.9 mg/dL (0.0-1.0); Blood Urea Nitrogen 9 mg/dL (9-16); Calcium 9.3 mg/dL (8.4-10.2); Carbon Dioxide 26 mmol/L (22-29); Chloride 107 mmol/L (96-108); Estimated Glomerular Filt Rate > 60; Glucose Fasting 92 mg/dL (60-99); Potassium 3.7 mmol/L (3.3-5.1); Sodium 139 mmol/L (135-145); Total Protein 7.2 g/dL (6.5-8.0)
[2023-12-16 12:05] LABS: Prostate Specific Antigen Scr 0.41 ng/mL (<0.05-4.0)
[2023-12-18 22:23] LABS: Class Alternaria alternata 0; Class Aspergillus fumigatus 0; Class Bermuda Grass 0; Class Birch 0; Class Cat Dander 0; Class Cladosporium herbarum 0/1; Class Cockroach 0; Class Common Ragweed 0; Class Cottonwood 0; Class Derm. pterony 0; Class Dermatophagoides farinae 0; Class Dog Dander 0; Class Elm 0; Class Maple Box Elder 0; Class Mountain Cedar 0; Class Mouse Urine Protein 0; Class Mugwort 0; Class Oak 0; Class Penicillium crysogenum 0; Class Rough Pigweed 0; Class Sheep Sorrel 0; Class Sycamore 0; Class Timothy Grass 0; Class Walnut Tree 0; Class White Ash 0; Class White Mulberry 0; D001 IgE D pteronyssinus <0.10 kU/L; D002 - IgE D farinae <0.10 kU/L; E001 - IgE Cat Dander <0.10 kU/L; E005 - IgE Dog Dander <0.10 kU/L; E072-IgE Mouse Urine <0.10 kU/L; G002 IgE Bermuda Grass <0.10 kU/L; G006 - IgE Timothy Grass <0.10 kU/L; I006-IgE Cockroach, German <0.10 kU/L; Immunoglobulin E 17 kU/L (<OR=114); M001 IgE Penicillium chrysogen <0.10 kU/L; M002 - IgE Cladosporium herbar 0.11 kU/L; M003 - IgE Aspergillus fumigat <0.10 kU/L; M006 - IgE Alternaria alternat <0.10 kU/L; T001 IgE Maple/Box Elder <0.10 kU/L; T003 IgE Common Silver Birch <0.10 kU/L; T006 - IgE Cedar, Mountain <0.10 kU/L; T007 - IgE Oak, White <0.10 kU/L; T008 IgE Elm, American <0.10 kU/L; T010 - IgE Walnut <0.10 kU/L; T011 - IgE Maple Leaf Sycamore <0.10 kU/L; T014 - IgE Cottonwood <0.10 kU/L; T015 - IgE Ash, White <0.10 kU/L; T070 - IgE White Mulberry <0.10 kU/L; W001 - IgE Ragweed, Short <0.10 kU/L; W006 - IgE Mugwort <0.10 kU/L; W014 IgE Pigweed, Common <0.10 kU/L; W018 IgE Sheep Sorrel <0.10 kU/L
== END 2023-12-16 10:33 | disposition home or self-care (01) ==
LOC: HO.LAB 10:32
PROVIDERS: PCP Physician Assistant; Visit Provider Physician Assistant
DX: Z13.1 Encounter for screening for diabetes mellitus (principal); Z12.5 Encounter for screening for malignant neoplasm of prostate; R05.9 Cough, unspecified; J30.89 Other allergic rhinitis
CPT/HCPCS: 36415; 80053; 82785; 84153; 86003

== ENCOUNTER 2024-01-25 15:02 | Outpatient (AMB) | payer BC, SELFPAY ==
--- NOTE | 2024-01-25 15:36 | MHC.PC.OV ---
Vital Signs 01/25/24 15:45 Height 6 ft Weight 220 lb 2 oz BMI 29.9 BP 110/60 Blood Pressure Location Lt brachial Position Sitting Pulse 68 Pulse Source Pulse Oximeter Pulse Oximetry (%) 97 Oxygen Delivery Method Room Air Intake Visit Reasons: ANNUAL Intake Note: Patient is here today for a physical. [place] Required: No Accompanied by: Self / Same As Patient Allergies hydrocodone [From VICODIN] Adverse Reaction (Intermediate, Verified 01/25/24 15:55) UPSET STOMACH Medication List - Last Reconciled 01/25/24 by Jong Vega PA-C clotrimazole 1% (Athlete's Foot (clotrimazole)) 1 appl topical BID 30 days [Excedrin Migraine 1 tab PO NEEDED PRN] fluticasone propionate 50 mcg/actuation (Flonase Allergy Relief) 1 spray intranasal BID 30 days montelukast (Singulair) 10 mg PO BEDTIME 30 days sildenafil 100 mg PO DAILY PRN 5 days tramadol 50 mg PO NEEDED 15 days Tobacco use date assessed: 07/20/23 Dental Screening Dental Screen Date: 07/20/23 HPI ANNUAL HPI Details Patient is a 53-year-old male here today for follow-up visit. Patient has a past medical history significant for lumbar stenosis. Concern-- > Mike reports he has been having some issue with hemorrhoids. He reports having some rectal itch and has been using preparation H cream with some effect. Denies any rectal bleeding. Patient has a history lumbar disc disease-->? Note does have history lumbar surgeries in 2014 and 2015. Recently had lumbar disc ectomy at [facility] with Dr. King 06/2021. ? HE FEELS HIS PAIN IS MUCH BETTER.? He is now back to work full-time and strength in his lower extremities does not impaired. He still does use tramadol on a p.r.n. basis Vaccine: UTD with Tdap and COVID vaccine, Declines flu vaccine .. Colonrectal cancer Screening: Colonoscopy done- in 2022 All tubular adenoma polyp found repeat colonoscopy in 5 years [facility] Medical History (Updated 01/29/24 @ 07:35 by Jong Vega PA-C) Allergic rhinitis Tubular adenoma Lumbar stenosis Surgical History Hx of colonoscopy History of lumbar fusion History of appendectomy History of lumbar surgery Family History (Updated 01/25/24 @ 15:58 by Jong Vega PA-C) Father CVD (cardiovascular disease) Stroke Recent heart attack Mother Myocardial infarction Hypertension Diabetes Maternal Grandmother Myocardial infarction Hypertension Diabetes Family/Other FH: mental illness Social History Housing: Apartment Alcohol intake: current Alcohol intake frequency: does not drink Patient Tobacco Use Status: Never used Tobacco e-Cigarette/Vaping Use: Never Used Second Hand Smoke Exposure: No service: No Current occupational status: employed 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 1. Little interest or pleasure in doing things: not at all 2. Feeling down, depressed, or hopeless: not at all 3. Trouble falling or staying asleep, or sleeping too much: not at all 4. Feeling tired or having little energy: not at all 5. Poor appetite or overeating: not at all 6. Feeling bad about yourself - or that you are a failure or have let yourself or your family down: not at all 7. Trouble concentrating on things, such as reading the newspaper or watching television: not at all 8. Moving or speaking so slowly that other people could have noticed. Or the opposite - being so fidgety or restless that you have been moving around a lot more than usual: not at all 9. Thoughts that you would be better off or of hurting yourself in some way: not at all Total score: 0 Depression Screening Interpretation: Negative Depression Screening Done: Yes 28748 - PHQ-9 Billing: Yes Source: Developed by Drs. Azael Marsh, Marielos Reese, Tone Mohamud and colleagues, with an educational tessy from [employer]. Thrive Questionnaire Date Thrive assessed: 01/25/24 I am a: Patient What is your living situation today?: I have a steady place to live Within the past 12 months, did the food you bought not last and you didn't have the money to get more?: Never true Within the past 12 months, did you worry whether your food would run out before you got money to buy more?: Never true Do you have trouble paying for medicines?: No Do you have trouble getting transportation to medical appointments?: No Do you have trouble paying your heating and electricity bill?: No Do you have trouble taking care of your child, family member or friend?: No Do you have trouble with day-to-day activities such as bathing, preparing meals, shopping, managing finances, etc.?: No Are you currently unemployed and looking for a job?: No Are you interested in more education?: No Please select the resources that you would like help with: None Currently or been in a relationship where the following occur: No concerns reported THRIVE Score: 0 AUDIT C Alcohol Use Questionnaire (AUDIT-C) 1. How often do you have a drink containing alcohol?: Never 3. How often do you have six or more drinks on one occasion?: Never Total Score: 0 CADE-7 AMB Questionnaire CADE-7 Date CADE - 7 assessed: 01/25/24 Feeling nervous, anxious, or on edge: 0 = Not at all Not being able to stop or control worryin = Not at all Worrying too much about different things: 0 = Not at all Trouble relaxin = Not at all Being so restless that it is hard to sit still: 0 = Not at all Becoming easily annoyed or irritable: 0 = Not at all Feeling afraid as if something awful might happen: 0 = Not at all Total CADE-7 score (0-4 normal; 5-9 mild; 10-14 moderate; 15-21 severe): 0 Source: Developed by Drs. Azael Marsh, Marielos Reese, Tone Mohamud and colleagues, with an educational tessy from [employer]. CADE-7 Assessment Billing CADE-7 Assessment Tool: CADE-7 Assessment 93485 Review of Systems Const Denies body aches, Denies chills, Denies excessive sweating, Denies fatigue, Denies fever(s) and Denies headache(s) Eyes Denies blurry vision ENT Denies dysphagia, Denies vertigo, Denies dizziness, Denies headache(s), Denies hearing loss and Denies tinnitus Card Denies chest pain, Denies chest pain with activity, Denies syncope, Denies irregular heart rhythm and Denies dyspnea Resp Denies chest congestion, Denies cough, Denies hemoptysis, Denies dyspnea and Denies wheezing GI Denies abdominal pain, Denies melena, Denies hematochezia, Denies coffee ground emesis, Denies dysphagia, Denies diarrhea, Denies nausea and Denies vomiting Denies difficulty urinating, Denies dysuria, Denies urinary frequency, Denies urinary hesitancy and Denies urinary urgency Musc Denies arthralgias, Denies limited range of motion, Denies muscle cramps and Denies muscle weakness Skin/Breast Denies rash and Denies skin ulcer Neuro Denies Abnormal speech present, Denies confusion, Denies vertigo, Denies dizziness, Denies syncope, Denies headache(s), Denies memory loss and Denies seizure-like activity Psych Denies anxiety, Denies confusion, Denies depression, Denies memory loss, Denies panic attacks and Denies paranoia Endo Denies excessive sweating, Denies fatigue, Denies flushing, Denies polydipsia and Denies polyuria Aller/Immun Denies wheezing Physical exam (Primary Care) Vital Signs: Last Vital Signs Pulse 68 01/25/24 15:45 BP 110/60 01/25/24 15:45 Pulse Ox 97 01/25/24 15:45 Oxygen Delivery Method Room Air 01/25/24 15:45 BMI result Body Mass Index 29.9 Tobacco/Smoking Status: Tobacco use Status Tobacco use date assessed 07/20/23 01/25/24 15:36 Patient Tobacco Use Status Never used Tobacco 01/25/24 15:36 e-Cigarette/Vaping Use Never Used 01/25/24 15:36 PHQ-9: PHQ-9 Score PHQ-9: Total score 0 01/25/24 16:00 Depression Screening Interpretation: Negative Thrive Assessment: Date of Thrive Assessment Date Thrive assessed 01/25/24 01/25/24 15:47 Currently or been in a relationship where the following occur: No concerns reported Const General: cooperative, comfortable, no acute distress, alert and awake; No confusion Orientation/consciousness: oriented to person, oriented to place, patient oriented x3 and No confusion HENMT Head: Yes normocephalic Ears: external ears normal and TM's normal bilaterally Face and sinus: No sinus tenderness Mouth: Normal oral and palatal mucosa present and tongue normal Teeth and gingiva: dentition normal and gingiva normal Throat: Yes posterior oropharynx normal, Yes tonsils normal and Yes uvula midline Eyes Conjunctivae: conjunctivae normal Sclerae: sclerae normal Pupils: Equal, round and reactive pupils present EOM: EOMs intact bilaterally Direct Ophthalmoscopy: No no photophobia Neck Neck: Yes no lymphadenopathy, No tender and Yes no JVD Thyroid: Thyroid normal Carotids: no bruits Chest Chest palpation & inspection: no tenderness Resp Effort & Inspection: normal respiratory effort, no audible wheezes, not labored and no stridor Auscultation: no crackles, no rales, no rhonchi and no wheezes Cardio Jugular venous distension: no JVD Rate: regular rate, not bradycardic and not tachycardic Rhythm: regular rhythm Bruits: no carotid bruits Peripheral pulses: Peripheral pulses 2+ throughout GI Inspection: Yes normal to inspection, No abdominal wall ecchymosis and No visible herniation Palpation (GI): Soft to palpation, nontender, no guarding, not rigid and No hepatosplenomegaly present Auscultation: normoactive bowel sounds General: Yes no CVA tenderness Back/Spine/Pelvis Back: no CVA tenderness and No back tenderness Cervical Spine: cervical ROM normal Thoracic/Lumbar Spine: thoracic and lumbar spine normal to inspection, straight leg raise negative bilaterally, No thoraco-lumbar ROM limited and No lumbar spinal tenderness Skin Lesions: no lesions Rashes: no rashes Wounds: no wounds Neuro General: oriented to person, oriented to place, patient oriented x3, CN's II-XI intact bilaterally and No confusion Cranial nerves: Yes Equal, round and reactive pupils present and Yes Normal accommodation reflex present Cognition (Neuro): normal cognition Speech: No Abnormal speech present Gait exam (Neuro): Normal gait present Motor exam (neuro): 5/5 motor strength present throughout Extrem Right upper extremity: full ROM; no cyanosis Left upper extremity: full ROM; no cyanosis Right lower extremity: no edema Left lower extremity: no edema Psych Appearance: grossly normal Mental Status: mental status grossly normal Affect: normal affect Attitude: cooperative Thought process: Normal thought process present Office Procedures Flu Questionnaire Does the patient have a severe egg allergy?: No Does the patient have severe life threatening allergies?: No Does the patient have a fever or illness today?: No Immunizations Fluarix Triv [id number] (PF) 45 mcg (15 mcg x 3)/0.5 mL IM syringe Performing Provider: Jong Vega PA-C Performing Location: [facility] Documented (not given) by: MILAN Pepe on 01/25/24 15:44 Reason Not Given: Patient Refused Coding Level of Care Code Est Pt Prev Care 40-64y(78982) Diagnoses Annual physical exam Z00.00 Lumbar radiculopathy M54.16 Acute hemorrhoid K64.9 Additional Codes CADE-7 Assessment Billing - CADE-7 Assessment Tool: CADE-7 Assessment 92448 ([id number]) Assessment & Plan Assessment & Plan (1) Annual physical exam: Code(s): Z00.00 - Encounter for general adult medical examination without abnormal findings Category: Medical Plan: As per HPI (2) Lumbar radiculopathy: Code(s): M54.16 - Radiculopathy, lumbar region Category: Medical Plan: As per HPI- patient is status post 2 lumbar spine surgeries. He reports he is doing well and working full-time in a physically demanding job. Does use terminal on a as needed basis with good effect on reducing his pain. (3) Acute hemorrhoid: Code(s): K64.9 - Unspecified hemorrhoids Category: Medical Plan: Patient reports a 1 week history of rectal itch and burn. Has been using preparation cream which has been helpful. He denies any rectal bleeding. We did discuss trying Sitz baths and stool softener to help with his symptomatic hemorrhoids. Orders: Orders Influenza [id number] Immunization 01/25/24 Z23 - Encounter for immunization Medications: New hydrocortisone 2.5% 1 appl topical BID 20 grams 0RF 15 days K64.9 - Unspecified hemorrhoids Refilled tramadol 50 mg PO NEEDED 15 tabs 2RF Pain 15 days M54.16 - Radiculopathy, lumbar region
[2024-01-25 15:45] VITALS: BP 110/60; PULSE 68; O2SAT 97; BMI 29.9
== END 2024-01-25 16:18 | disposition home or self-care (01) ==
PROVIDERS: PCP Physician Assistant; Visit Provider Physician Assistant
DX: Z00.00 Encounter for general adult medical examination without abnormal findings (principal); M54.16 Radiculopathy, lumbar region; K64.9 Unspecified hemorrhoids

== ENCOUNTER → 2024-01-25 15:02 | Outpatient (BNVA) | payer BC, SELFPAY | PROVIDERS: PCP Physician Assistant; Visit Provider Physician Assistant | DX: Z00.01 Encounter for general adult medical examination with abnormal findings (principal); K64.9 Unspecified hemorrhoids; M54.16 Radiculopathy, lumbar region; Z28.21 Immunization not carried out because of patient refusal | CPT/HCPCS: 90471; 96127 ==

== ENCOUNTER 2024-07-25 10:41 | Outpatient (AMB) | payer BC, SELFPAY ==
--- NOTE | 2024-07-25 10:45 | A.OFFPC_ITS ---
Vital Signs 07/25/24 10:46 Height 6 ft Weight 215 lb BMI 29.2 BP 134/86 Blood Pressure Location Lt brachial Position Sitting Pulse 72 Pulse Source Pulse Oximeter Temp 97.1 F Temp Source Temporal Artery Scan Pulse Oximetry (%) 95 Oxygen Delivery Method Room Air Intake Visit Reasons: Check up Accompanied by: Self / Same As Patient Allergies hydrocodone [From VICODIN] Adverse Reaction (Intermediate, Verified 07/25/24 11:11) UPSET STOMACH Tobacco use date assessed: 07/25/24 Dental Screening Dental Screen Date: 07/25/24 Did you have a dental visit in the last 12 months?: Yes Did you have a dental problem in the last 6 months where you did not have access to dental care?: No Was dental information given to patient?: Patient has dentist HPI Check up HPI Details Patient is a 53-year-old male here today for follow-up visit. Patient has a past medical history significant for lumbar stenosis. Anxiety: The anxiety stems from the anticipation of an upcoming court trial. The trial is expected to last up to two weeks, impacting his ability to work. He has previously experienced anxiety, not requiring medication, but prefers to manage it through lifestyle interventions such as exercise, which he intends to con tinue. The patient described a strong familial peterson and responsibilities following the loss of his son, for whom he is helping raise his grandson. This life event significantly contributes to his current stress. Patient has a history lumbar disc disease-->? Note does have history lumbar surgeries in 2014 and 2015. Recently had lumbar disc ectomy at [facility] with Dr. King 06/2021. ? HE FEELS HIS PAIN IS MUCH BETTER.? He is now back to work full-time and strength in his lower extremities does not impaired. He still does use tramadol on a p.r.n. basis [facility] Medical History Allergic rhinitis Tubular adenoma Lumbar stenosis Surgical History Hx of colonoscopy History of lumbar fusion History of appendectomy History of lumbar surgery Family History Father CVD (cardiovascular disease) Stroke Recent heart attack Mother Myocardial infarction Hypertension Diabetes Maternal Grandmother Myocardial infarction Hypertension Diabetes Family/Other FH: mental illness Social History Housing: Apartment Alcohol intake: current Alcohol intake frequency: does not drink Patient Tobacco Use Status: Never used Tobacco e-Cigarette/Vaping Use: Never Used Second Hand Smoke Exposure: No service: No Current occupational status: employed 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 1. Little interest or pleasure in doing things: not at all 2. Feeling down, depressed, or hopeless: not at all 3. Trouble falling or staying asleep, or sleeping too much: not at all 4. Feeling tired or having little energy: not at all 5. Poor appetite or overeating: not at all 6. Feeling bad about yourself - or that you are a failure or have let yourself or your family down: not at all 7. Trouble concentrating on things, such as reading the newspaper or watching television: not at all 8. Moving or speaking so slowly that other people could have noticed. Or the opposite - being so fidgety or restless that you have been moving around a lot more than usual: not at all 9. Thoughts that you would be better off or of hurting yourself in some w ay: not at all Total score: 0 Depression Screening Interpretation: Negative Depression Screening Done: Yes 46770 - PHQ-9 Billing: Yes Source: Developed by Drs. Azael Marsh, Marielos Reese, Tone Mohamud and colleagues, with an educational tessy from [employer]. Thrive Questionnaire Date Thrive assessed: 07/25/24 I am a: Patient What is your living situation today?: I have a steady place to live Within the past 12 months, did the food you bought not last and you didn't have the money to get more?: Never true Within the past 12 months, did you worry whether your food would run out before you got money to buy more?: Never true Do you have trouble paying for medicines?: No Do you have trouble getting transportation to medical appointments?: No Do you have trouble paying your heating and electricity bill?: No Do you have trouble taking care of your child, family member or friend?: No Do you have trouble with day-to-day activities such as bathing, preparing meals, shopping, managing finances, etc.?: No Are you currently unemployed and looking for a job?: No Are you interested in more education?: No Please select the resources that you would like help with: None Currently or been in a relationship where the following occur: No concerns reported THRIVE Score: 0 AUDIT C Alcohol Use Questionnaire (AUDIT-C) 1. How often do you have a drink containing alcohol?: Never 3. How often do you have six or more drinks on one occasion?: Never Total Score: 0 CADE-7 AMB Questionnaire CADE-7 Date CADE - 7 assessed: 07/25/24 Feeling nervous, anxious, or on edge: 0 = Not at all Not being able to stop or control worryin = Not at all Worrying too much about different things: 0 = Not at all Trouble relaxin = Not at all Being so restless that it is hard to sit still: 0 = Not at all Becoming easily annoyed or irritable: 0 = Not at all Feeling afraid as if something awful might happen: 0 = Not at all Total CADE-7 score (0-4 normal; 5-9 mild; 10-14 moderate; 15-21 severe): 0 Source: Developed by Drs. Azael Marsh, Marielos Reese, Tone Mohamud and colleagues, with an educational tessy from [employer]. CADE-7 Assessment Billing CADE-7 Assessment Tool: CADE-7 Assessment 08421 Review of Systems Const Denies headache(s) Eyes Denies loss of vision ENT Denies vertigo, Denies dizziness, Denies headache(s) and Denies sore throat Card Denies chest pain, Denies leg edema and Denies lightheadedness Resp Denies cough, Denies hemoptysis and Denies wheezing GI Denies abdominal pain, Denies melena, Denies constipation, Denies diarrhea and Denies vomiting Denies dysuria, Denies urinary frequency and Denies urinary urgency Musc Denies arthralgias, Denies joint swelling, Denies numbness and Denies tingling Neuro Denies Abnormal speech present, Denies behavioral changes, Denies vertigo, Denies dizziness, Denies headache(s), Denies loss of vision, Denies memory loss, Denies numbness and Denies tingling Psych Denies anxiety, Denies behavioral changes, Denies depression, Denies memory loss and Denies panic attacks Aidan/Lymph Denies easy bleeding and Denies easy bruising Aller/Immun Denies wheezing Physical exam (Primary Care) Vital Signs: Last Vital Signs Temp 97.1 F 07/25/24 10:46 Pulse 72 07/25/24 10:46 BP 134/86 07/25/24 10:46 Pulse Ox 95 07/25/24 10:46 Oxygen Delivery Method Room Air 07/25/24 10:46 BMI result Body Mass Index 29.2 Tobacco/Smoking Status: Tobacco use Status Tobacco use date assessed 07/25/24 07/25/24 11:07 Patient Tobacco Use Status Never used Tobacco 07/25/24 10:45 e-Cigarette/Vaping Use Never Used 07/25/24 10:45 PHQ-9: PHQ-9 Score PHQ-9: Total score 0 07/25/24 10:58 Depression Screening Interpretation: Negative Thrive Assessment: Date of Thrive Assessment Date Thrive assessed 07/25/24 07/25/24 10:45 Currently or been in a relationship where the following occur: No concerns reported Const General: healthy appearing, no acute distress, alert and awake Nutritional Appearance: well nourished Orientation/consciousness: oriented to person, oriented to place and oriented to time HENMT Ears: TM's normal bilaterally General nose exam: Normal nasal mucous membranes and turbinates present Eyes Conjunctivae: conjunctivae normal Sclerae: sclerae normal Pupils: Equal, round and reactive pupils present Neck Neck: Yes no lymphadenopathy and Yes no JVD Thyroid: Thyroid normal Carotids: no bruits Resp Effort & Inspection: normal respiratory effort and not tachypneic Auscultation: no crackles, no rales, no rhonchi and no wheezes Cardio Rate: regular rate Rhythm: regular rhythm Heart sounds: no murmurs and normal S1 and S2 GI Palpation (GI): Soft to palpation, nontender, no hepatomegaly and no splenomegaly Auscultation: normal bowel sounds Skin General skin exam: no rashes or lesions noted and dry skin Neuro General: oriented to person, oriented to place and oriented to time Cranial nerves: Yes Equal, round and reactive pupils present Speech: No Abnormal speech present Gait exam (Neuro): Normal gait present Motor exam (neuro): no tremor noted Extrem Right upper extremity: full ROM Left upper extremity: full ROM Right lower extremity: full ROM; no edema Left lower extremity: full ROM; no edema Psych Mental Status: mental status grossly normal Speech and movement: Normal speech and movement present Affect: normal affect Attitude: cooperative Thought process: Normal thought process present Coding Level of Care Code Est Pt Level 4 (82541) Diagnoses CADE (generalized anxiety disorder) F41.1 MDD (major depressive disorder), recurrent episode, moderate F33.1 Lumbar radiculopathy M54.16 Tinea pedis of both feet B35.3 Additional Codes CADE-7 Assessment Billing - CADE-7 Assessment Tool: CADE-7 Assessment 46968 ([id number]) PHQ-9 - 26104 - PHQ-9 Billing: Yes ([id number]) Assessment & Plan Assessment & Plan (1) CADE (generalized anxiety disorder): Code(s): F41.1 - Generalized anxiety disorder Category: Medical Plan: Patient's anxiety is fairly well controlled without medication. Has upcoming trial for his son's murder and anticipates increased anxiety, mood changes and inability to do his job because of this. [facility] paperwork filled out for continues leave. (2) MDD (major depressive disorder), recurrent episode, moderate: Code(s): F33.1 - Major depressive disorder, recurrent, moderate Category: Medical Plan: Patient has a history of major depressive disorder though has been able to manage with nonpharmacological medication. (3) Lumbar radiculopathy: Code(s): M54.16 - Radiculopathy, lumbar region Category: Medical Plan: As per HPI- patient is status post 2 lumbar spine surgeries. He reports he is doing well and working full-time in a physically demanding job. Does use terminal on a as needed basis with good effect on reducing his pain. (4) Tinea pedis of both feet: Code(s): B35.3 - Tinea pedis Category: Medical Plan: Will supply patient with a few weeks of oral antifungal. Will also supply patient with nystatin powder which has helped him reduce some of tinea pedis in the past. Orders: Orders Comprehensive [place]. Panel Fast Today Z13.1 - Encounter for screening for diabetes mellitus Complete Blood Count no Diff Today Z13.1 - Encounter for screening for diabetes mellitus Medications: New terbinafine HCl 250 mg PO DAILY 10 tabs 0RF 10 days B35.3 - Tinea pedis nystatin 1 appl topical DAILY 60 grams 2RF 30 days B35.3 - Tinea pedis
[2024-07-25 10:46] VITALS: BP 134/86; PULSE 72; TEMP 36.2; O2SAT 95; BMI 29.2
== END 2024-07-25 11:20 | disposition home or self-care (01) ==
LOC: HO.HMCH 10:42
PROVIDERS: PCP Physician Assistant; Visit Provider Physician Assistant
DX: F41.1 Generalized anxiety disorder (principal); F33.1 Major depressive disorder, recurrent, moderate; M54.16 Radiculopathy, lumbar region; B35.3 Tinea pedis

== ENCOUNTER → 2024-07-25 10:41 | Outpatient (BNVA) | payer BC, SELFPAY | PROVIDERS: PCP Physician Assistant; Visit Provider Physician Assistant | DX: F41.1 Generalized anxiety disorder (principal); F33.1 Major depressive disorder, recurrent, moderate; M54.16 Radiculopathy, lumbar region; B35.3 Tinea pedis | CPT/HCPCS: 96127 ==

== ENCOUNTER 2024-12-26 15:24 | Outpatient (AMB) | payer BC, SELFPAY ==
[2024-12-26 15:38] VITALS: BP 112/64; PULSE 75; O2SAT 98; BMI 29.9
--- NOTE | 2024-12-26 15:38 | MHC.PC.OV ---
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 Accompanied by: Self / Same As Patient Allergies hydrocodone (From VICODIN) Adverse Reaction (Intermediate, Verified 12/26/24 15:39) UPSET STOMACH Medication List - Last Reconciled 12/26/24 by Tessa Lynne MD tramadol 50 mg PO NEEDED 15 days Tobacco use date assessed: 07/25/24 Dental Screening Dental Screen Date: 07/25/24 Did you have a dental visit in the last 12 months?: Yes Did you have a dental problem in the last 6 months where you did not have access to dental care?: No Was dental information given to patient?: Patient has dentist HPI HPI Comments History of Present Illness Details The patient is a 54-year-old male presenting with upper back pain. The pain has been present for a few weeks, approximately two and a half weeks, without any specific injury or new physical activity to account for it. The patient describes the pain as located in the upper back, along the spine, and notes that it is less severe after taking tramadol. The patient has a history of lumbar spine surgery with the placement of screws and metal plates, but reports that the current pain is in the upper back, which is a new location for him. He suspects the pain might be due to muscle strain, as it worsens with certain movements and physical activities related to his job. The patient maintains a healthy lifestyle, abstaining from alcohol and smoking, and follows a diet rich in fruits, vegetables, and lean meats. He exercises regularly and has been advised to minimize physical strain to prevent exacerbation of his symptoms. [facility] Medical History Allergic rhinitis Tubular adenoma Lumbar stenosis Surgical History Hx of colonoscopy History of lumbar fusion History of appendectomy History of lumbar surgery Family History Father CVD (cardiovascular disease) Stroke Recent heart attack Mother Myocardial infarction Hypertension Diabetes Maternal Grandmother Myocardial infarction Hypertension Diabetes Family/Other FH: mental illness Social History Housing: Apartment Alcohol intake: current Alcohol intake frequency: does not drink Patient Tobacco Use Status: Never used Tobacco e-Cigarette/Vaping Use: Never Used Second Hand Smoke Exposure: No service: No Current occupational status: employed 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 1. Little interest or pleasure in doing things: several days 2. Feeling down, depressed, or hopeless: not at all 3. Trouble falling or staying asleep, or sleeping too much: not at all 4. Feeling tired or having little energy: not at all 5. Poor appetite or overeating: not at all 6. Feeling bad about yourself - or that you are a failure or have let yourself or your family down: not at all 7. Trouble concentrating on things, such as reading the newspaper or watching television: not at all 8. Moving or speaking so slowly that other people could have noticed. Or the opposite - being so fidgety or restless that you have been moving around a lot more than usual: not at all 9. Thoughts that you would be better off or of hurting yourself in some way: not at all Total score: 1 Source: Developed by Drs. Azael Marsh, Marielos Reese, Tone Mohamud and colleagues, with an educational tessy from [employer]. Thrive Questionnaire Date Thrive assessed: 07/25/24 I am a: Patient What is your living situation today?: I have a steady place to live Within the past 12 months, did the food you bought not last and you didn't have the money to get more?: Never true Within the past 12 months, did you worry whether your food would run out before you got money to buy more?: Never true Do you have trouble paying for medicines?: No Do you have trouble getting transportation to medical appointments?: No Do you have trouble paying your heating and electricity bill?: No Do you have trouble taking care of your child, family member or friend?: No Do you have trouble with day-to-day activities such as bathing, preparing meals, shopping, managing finances, etc.?: No Are you currently unemployed and looking for a job?: No Are you interested in more education?: No Please select the resources that you would like help with: None Currently or been in a relationship where the following occur: No concerns reported THRIVE Score: 0 AUDIT C Alcohol Use Questionnaire (AUDIT-C) 1. How often do you have a drink containing alcohol?: Never Total Score: 0 CDAE-7 AMB Questionnaire CADE-7 Date CADE - 7 assessed: 07/25/24 Feeling nervous, anxious, or on edge: 0 = Not at all Not being able to stop or control worryin = Not at all Worrying too much about different things: 0 = Not at all Trouble relaxin = Not at all Being so restless that it is hard to sit still: 0 = Not at all Becoming easily annoyed or irritable: 0 = Not at all Feeling afraid as if something awful might happen: 0 = Not at all Total CADE-7 score (0-4 normal; 5-9 mild; 10-14 moderate; 15-21 severe): 0 Source: Developed by Drs. Azael Marsh, Marielos Reese, Tone Mohamud and colleagues, with an educational tessy from [employer]. Review of Systems Const Details: Positives besides what was mentioned in HPI are in BOLD Constitutional: No Weight Change, No Fever, No Chills, No Night Sweats, No Fatigue, No Malaise ENT/Mouth: No Hearing Changes, No Ear Pain, No Nasal Congestion, No Sinus Pain, No Hoarseness, No sore throat, No Rhinorrhea, No Swallowing Difficulty Eyes: No Eye Pain, No Swelling, No Redness, No Foreign Body, No Discharge, No Vision Changes Cardiovascular: No Chest Pain, No SOB, No PND, No Dyspnea on Exertion, No Orthopnea, No Claudication, No Edema, No Palpitations Respiratory: No Cough, No Sputum, No Wheezing, No Smoke Exposure, No Dyspnea Gastrointestinal: No Nausea, No Vomiting, No Diarrhea, No Constipation, No Pain, No Heartburn, No Anorexia, No Dysphagia, No Hematochezia, No Melena, No Flatulence, No Jaundice Genitourinary: No Dysmenorrhea, No DUB, No Dyspareunia, No Dysuria, No Urinary Frequency, No Hematuria, No Urinary Incontinence, No Urgency, No Flank Pain, No Urinary Flow Changes, No Hesitancy Musculoskeletal: No Arthralgias, No Myalgias, No Joint Swelling, No Joint Stiffness, No Back Pain, No Neck Pain, No Injury History Skin: No Skin Lesions, No Pruritis, No Hair Changes, No Breast/Skin Changes, No Nipple Discharge Neuro: No Weakness, No Numbness, No Paresthesias, No Loss of Consciousness, No Syncope, No Dizziness, No Headache, No Coordination Changes, No Recent Falls Psych: No Anxiety/Panic, No Depression, No Insomnia, No Personality Changes, No Delusions, No Rumination, No SI/HI/AH/VH, No Social Issues, No Memory Changes, No Violence/Abuse Hx., No Eating Concerns Heme/Lymph: No Bruising, No Bleeding, No Transfusions History, No Lymphadenopathy Endocrine: No Polyuria, No Polydipsia, No Temperature Intolerance Physical exam (Primary Care) Vital Signs: Last Vital Signs Pulse 75 12/26/24 15:38 BP 112/64 12/26/24 15:38 Pulse Ox 98 12/26/24 15:38 Oxygen Delivery Method Room Air 12/26/24 15:38 BMI result Body Mass Index 29.9 Tobacco/Smoking Status: Tobacco use Status Tobacco use date assessed 07/25/24 12/26/24 15:42 Patient Tobacco Use Status Never used Tobacco 12/26/24 15:42 e-Cigarette/Vaping Use Never Used 12/26/24 15:42 PHQ-9: PHQ-9 Score PHQ-9: Total score 1 12/26/24 15:42 Thrive Assessment: Date of Thrive Assessment Date Thrive assessed 07/25/24 12/26/24 15:42 Currently or been in a relationship where the following occur: No concerns reported Const Other: Pertinent findings are in BOLD GENERAL APPEARANCE NAD, activity normal for age, well developed/ well nourished, no cyanosis, pallor, or diaphoresis. EYES lids/conjunctiva normal. EARS/NOSE/THROAT Mucous membranes moist, nares normal, lips/teeth normal uvula midline without oral pharyngeal erythema, exudate or swelling TMs normal bilaterally. No lymphangitis/lymphedema. HEAD/NECK normocephalic atraumatic, no facial trauma, neck is supple. RESPIRATORY respiratory effort normal, speaks in full sentences, no tripod position, no accessory muscle use. Lungs clear to auscultation without rhonchi, wheezes, rales CARDIAC Regular rate and rhythm, no edema. ABDOMINAL Soft, ND/NT. No evidence of fluid wave. No pulsatile masses on exam, rebound tenderness, Hernandez sign or pain over Mcburney's point. MUSCLES/EXTREMITIES No abnormal range of motion, no swelling. Upper back paravertebral tenderness. SKIN Warm, pink and dry. No rashes, dermatoses, petechiae or lesions. NEUROLOGICAL Speech is clear and appropriate. Normal level of consciousness. Gait and coordination are normal. 5/5 strength in all extremities. PSYCH Normal mood and affect. Judgement/competence is appropriate Coding Level of Care Code Est Pt Level 3 (25064) Diagnoses Other acute back pain M54.89 Back pain location: back pain in other location Chronicity: acute Time Spent (min) 20 Assessment & Plan Assessment & Plan (1) Back pain: Code(s): M54.9 - Dorsalgia, unspecified Category: Medical Qualifiers: Back pain location: back pain in other location Chronicity: acute Qualified Code(s): M54.89 - Other dorsalgia Plan: Cyclobenzaprine BID for muscle spasms. He has been instructed to avoid taking cyclobenzaprine during the day due to its sedative effects, and to use it primarily at night. Ibuprofen Q8hr during the day to help with the pain. Plan I discussed with the patient the management of his musculoskeletal pain, emphasizing the use of tramadol and the introduction of cyclobenzaprine and ibuprofen for additional relief. I advised him on the potential sedative effects of cyclobenzaprine and recommended its use primarily at night. We also discussed the importance of avoiding activities that could exacerbate his pain and the possibility of further imaging if new symptoms develop. Medications: New cyclobenzaprine 5 mg PO BID PRN 60 tabs 0RF muscle spasm 30 days ibuprofen 400 mg PO Q8H 60 tabs 0RF 20 days
== END 2024-12-26 15:58 | disposition home or self-care (01) ==
LOC: HO.HMCH 15:25
PROVIDERS: PCP Physician Assistant; Visit Provider Internal Medicine
DX: M54.89 Other dorsalgia (principal)

== ENCOUNTER 2025-01-28 14:55 | Outpatient (AMB) | payer BC, SELFPAY ==
--- NOTE | 2025-01-28 15:25 | MHC.PC.OV ---
Vital Signs 01/28/25 15:26 Height 6 ft Weight 215 lb 4 oz BMI 29.2 BP 100/62 Blood Pressure Location Lt brachial Position Sitting Pulse 58 Pulse Source Pulse Oximeter Temp 97.3 F Temp Source Temporal Artery Scan Pulse Oximetry (%) 97 Oxygen Delivery Method Room Air Intake Visit Reasons: Annual Exam Intake Note: Patient is here today for a physical. 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 Patient has a past medical history significant for lumbar stenosis. Anxiety: Has been manageable without medication. Patient has a history lumbar disc disease-->? Note does have history lumbar surgeries in 2014 and 2015. Recently had lumbar disc ectomy at [facility] with Dr. King 06/2021. ? He feels his pain is much more manageable.? He is now back to work full-time and strength in his lower extremities does not impaired. He still does use tramadol on a p.r.n. basis Vaccine: UTD with Tdap and COVID vaccine, Declines flu vaccine .. Colonrectal cancer Screening: Colonoscopy done- in 2022 All tubular adenoma polyp found repeat colonoscopy in 5 years [facility] Medical History Allergic rhinitis Tubular adenoma Lumbar stenosis Surgical History Hx of colonoscopy History of lumbar fusion History of appendectomy History of lumbar surgery Family History Father CVD (cardiovascular disease) Stroke Recent heart attack Mother Myocardial infarction Hypertension Diabetes Maternal Grandmother Myocardial infarction Hypertension Diabetes Family/Other FH: mental illness Social History Housing: Apartment Alcohol intake: current Alcohol intake frequency: does not drink Patient Tobacco Use Status: Never used Tobacco e-Cigarette/Vaping Use: Never Used Second Hand Smoke Exposure: No service: No Current occupational status: employed Current occupation: [employer]. Cognitive needs: No Hearing needs: No Vision needs: No Questionnaire Thrive Questionnaire Date Thrive assessed: 12/26/24 I am a: Patient What is your living situation today?: I have a steady place to live Within the past 12 months, did the food you bought not last and you didn't have the money to get more?: Never true Within the past 12 months, did you worry whether your food would run out before you got money to buy more?: Never true Do you have trouble paying for medicines?: No Do you have trouble getting transportation to medical appointments?: No Do you have trouble paying your heating and electricity bill?: No Do you have trouble taking care of your child, family member or friend?: No Do you have trouble with day-to-day activities such as bathing, preparing meals, shopping, managing finances, etc.?: No Are you currently unemployed and looking for a job?: No Are you interested in more education?: No Please select the resources that you would like help with: None Currently or been in a relationship where the following occur: No concerns reported THRIVE Score: 0 CADE-7 AMB Questionnaire CADE-7 Date CADE - 7 assessed: 07/25/24 Source: Developed by Drs. Azael Marsh, Marielos Reese, Tone Mohamud and colleagues, with an educational tessy from [employer]. Review of Systems Const Denies body aches, Denies chills, Denies excessive sweating, Denies fatigue, Denies fever(s) and Denies headache(s) Eyes Denies blurry vision ENT Denies dysphagia, Denies vertigo, Denies dizziness, Denies headache(s), Denies hearing loss and Denies tinnitus Card Denies chest pain, Denies chest pain with activity, Denies syncope, Denies irregular heart rhythm and Denies dyspnea Resp Denies chest congestion, Denies cough, Denies hemoptysis, Denies dyspnea and Denies wheezing GI Denies abdominal pain, Denies melena, Denies hematochezia, Denies coffee ground emesis, Denies dysphagia, Denies diarrhea, Denies nausea and Denies vomiting Denies difficulty urinating, Denies dysuria, Denies urinary frequency, Denies urinary hesitancy and Denies urinary urgency Musc Denies arthralgias, Denies limited range of motion, Denies muscle cramps and Denies muscle weakness Skin/Breast Denies rash and Denies skin ulcer Neuro Denies Abnormal speech present, Denies confusion, Denies vertigo, Denies dizziness, Denies syncope, Denies headache(s), Denies memory loss and Denies seizure-like activity Psych Denies anxiety, Denies confusion, Denies depression, Denies memory loss, Denies panic attacks and Denies paranoia Endo Denies excessive sweating, Denies fatigue, Denies flushing, Denies polydipsia and Denies polyuria Aller/Immun Denies wheezing Physical exam (Primary Care) Vital Signs: Last Vital Signs Temp 97.3 F 01/28/25 15:26 Pulse 58 01/28/25 15:26 BP 100/62 01/28/25 15:26 Pulse Ox 97 01/28/25 15:26 Oxygen Delivery Method Room Air 01/28/25 15:26 BMI result Body Mass Index 29.2 Tobacco/Smoking Status: Tobacco use Status Tobacco use date assessed 01/28/25 01/28/25 15:29 Patient Tobacco Use Status Never used Tobacco 01/28/25 15:29 e-Cigarette/Vaping Use Never Used 01/28/25 15:29 Thrive Assessment: Date of Thrive Assessment Date Thrive assessed 12/26/24 01/28/25 15:29 Currently or been in a relationship where the following occur: No concerns reported Const General: cooperative, comfortable, no acute distress, alert and awake; No confusion Orientation/consciousness: oriented to person, oriented to place, patient oriented x3 and No confusion HENMT Head: Yes normocephalic Ears: external ears normal and TM's normal bilaterally Face and sinus: No sinus tenderness Mouth: Normal oral and palatal mucosa present and tongue normal Teeth and gingiva: dentition normal and gingiva normal Throat: Yes posterior oropharynx normal, Yes tonsils normal and Yes uvula midline Eyes Conjunctivae: conjunctivae normal Sclerae: sclerae normal Pupils: Equal, round and reactive pupils present EOM: EOMs intact bilaterally Direct Ophthalmoscopy: No no photophobia Neck Neck: Yes no lymphadenopathy, No tender and Yes no JVD Thyroid: Thyroid normal Carotids: no bruits Chest Chest palpation & inspection: no tenderness Resp Effort & Inspection: normal respiratory effort, no audible wheezes, not labored and no stridor Auscultation: no crackles, no rales, no rhonchi and no wheezes Cardio Jugular venous distension: no JVD Rate: regular rate, not bradycardic and not tachycardic Rhythm: regular rhythm Bruits: no carotid bruits Peripheral pulses: Peripheral pulses 2+ throughout GI Inspection: Yes normal to inspection, No abdominal wall ecchymosis and No visible herniation Palpation (GI): Soft to palpation, nontender, no guarding, not rigid and No hepatosplenomegaly present Auscultation: normoactive bowel sounds General: Yes no CVA tenderness Back/Spine/Pelvis Back: no CVA tenderness and No back tenderness Cervical Spine: cervical ROM normal Thoracic/Lumbar Spine: thoracic and lumbar spine normal to inspection, straight leg raise negative bilaterally, No thoraco-lumbar ROM limited and No lumbar spinal tenderness Skin Lesions: no lesions Rashes: no rashes Wounds: no wounds Neuro General: oriented to person, oriented to place, patient oriented x3, CN's II-XI intact bilaterally and No confusion Cranial nerves: Yes Equal, round and reactive pupils present and Yes Normal accommodation reflex present Cognition (Neuro): normal cognition Speech: No Abnormal speech present Gait exam (Neuro): Normal gait present Motor exam (neuro): 5/5 motor strength present throughout Extrem Right upper extremity: full ROM; no cyanosis Left upper extremity: full ROM; no cyanosis Right lower extremity: no edema Left lower extremity: no edema Psych Appearance: grossly normal Mental Status: mental status grossly normal Affect: normal affect Attitude: cooperative Thought process: Normal thought process present Coding Level of Care Code Est Pt Prev Care 40-64y(33474) Diagnoses Annual physical exam Z00.00 CADE (generalized anxiety disorder) F41.1 Lumbar radiculopathy M54.16 Assessment & Plan Assessment & Plan (1) Annual physical exam: Code(s): Z00.00 - Encounter for general adult medical examination without abnormal findings Category: Medical Plan: As per HPI (2) CADE (generalized anxiety disorder): Code(s): F41.1 - Generalized anxiety disorder Category: Medical Plan: He reports he has anxiety is manageable without medication. He does use the gym as it is therapy. (3) Lumbar radiculopathy: Code(s): M54.16 - Radiculopathy, lumbar region Category: Medical Plan: As per HPI- patient is status post 2 lumbar spine surgeries. He reports he is doing well and working full-time in a physically demanding job. Does use tramadol and cyclobenzaprine on a as needed basis with good effect on reducing his pain. Orders: Orders Prostate Specific Antigen Scr Today Z12.5 - Encounter for screening for malignant neoplasm of prostate
[2025-01-28 15:26] VITALS: BP 100/62; PULSE 58; TEMP 36.3; O2SAT 97; BMI 29.2
== END 2025-01-28 15:58 | disposition home or self-care (01) ==
LOC: HO.HMCH 14:56
PROVIDERS: PCP Physician Assistant; Visit Provider Physician Assistant
DX: Z00.00 Encounter for general adult medical examination without abnormal findings (principal); F41.1 Generalized anxiety disorder; M54.16 Radiculopathy, lumbar region